=== PATIENT | male | born 2000 | race Two or more races ===

== ENCOUNTER 2024-11-16 16:24 | Emergency (ER) | payer MEDICAID, SELFPAY ==
[2024-11-16 16:24] VITALS: BMI 18.4
[2024-11-16 16:38] VITALS: BP 156/82; PULSE 63; RESP 16; TEMP 37.2; O2SAT 99
--- NOTE | 2024-11-16 16:42 | XR_ITS ---
Examination: Foot, right, 3 views Technique: AP, oblique, lateral views foot, 3 views Date and time of exam: November 16, 2024 1657 hrs. Indications: Patient fell today with injury to foot, foot pain. Findings: Normal bone density No acute fracture No dislocation Impression: No acute fracture
--- NOTE | 2024-11-16 16:43 | EDNOTE_ITS ---
Lower Extremity Injury RME/HPI General Chief Complaint: Extremity Injury, Lower Stated Complaint: Right ankle pain after a fall at school yesterday Time Seen by Provider: 11/16/24 16:31 Arrival date/time: 11/16/24 16:24 RME / HPI RME / HPI Narrative: 24-year-old male patient came in for evaluation regarding right foot pain. Patient was jumping at school yesterday resulting into swelling to the right foot, with bruising, patient is able to walk however limping. Denies any ankle pain denies any other injury. No medications taken prior to arrival. Related Data Previous Rx's ?Medication ?Instructions ?Recorded ibuprofen 800 mg tablet 800 mg PO TID PRN pain #30 t abs 11/16/24 Allergies Allergy/AdvReac Type Severity Reaction Status Date / Time No Known Allergies Allergy Verified 10/16/18 08:41 Review of Systems Review of Systems Narrative Review of Systems: Review of system reviewed and within normal limits except mentioned in HPI ED Exam Narrative Physical exam: VITAL SIGNS: Reviewed. GENERAL APPEARANCE: Alert and interactive, follows commands, no acute distress, HEAD AND FACE: Non-traumatic. ENT: PERRL, pink conjunctivitis, eyelid no trauma, Mucous membrane moist. NECK: Supple, nontender, no nuchal rigidity. CHEST: No tenderness, no crepitus, no paradoxical movement, no retractions. LUNGS: Clear, well ventilated, symmetric, no rales, no wheezing, no ronchi, no stridor, good breath sounds bilaterally. HEART: Regular rate, regular rhythm, no murmur, no gallops. ABDOMEN: Soft, positive bowel sounds, nondistended, no guarding, nontender, no rebound, no masses, RECTAL: Deferred. GENITAL: Deferred. NEUROLOGICAL: Gross motor function intact sensory function intact, Appropriate for age. MUSCULOSKELETAL: low back nontender, full range of motion. EXTREMITIES: Right foot midfoot swelling, bruising, with tenderness, full range of motion. SKIN: Color pink, dry, no rash, no lacerations, no abrasions, no contusions. LYMPHATICS: Deferred. Course Quality Measures none Orders Category Date Time Status XR foot comp RT min 3V Stat Exams 11/16/24 16:42 Taken Ibuprofen Tab [Motrin Tab] Med 11/16/24 16:42 Discontinued 800 mg PO X1 ONE Vital Signs Vital signs: Vital Signs Temperature 99 F 03/08/25 16:38 Pulse Rate 63 11/16/24 16:38 Respiratory Rate 16 11/16/24 16:38 Blood Pressure 156/82 H 11/16/24 16:38 Pulse Oximetry (%) 99 11/16/24 16:38 Oxygen Delivery Method Room Air 11/16/24 16:38 Extremity Injury, Lower MDM Narrative [facility] Narrative:: 24-year-old male patient came in for evaluation regarding right foot pain. Patient was jumping at school yesterday resulting into swelling to the right foot, with bruising, patient is able to walk however limping. Denies any ankle pain denies any other injury. No medications taken prior to arrival. X-ray of the right foot showed small avulsion fracture of the cuboid, rest of the bones unremarkable. Patient was placed in an Ortho shoe. Was advised to follow-up with PCP and for referral to orthopedic surgeon next week. Patient appears nontoxic and hemodynamically stable. Patient discharged home and instructed to follow-up with primary care provider in 24 to 48 hours. Instructed to return to the emergency department immediately if worsening of symptoms Patient data External records reviewed:: None Clinical information provided by:: patient Social determinants that could affect healthcare access:: none Patient has the following chronic illnesses:: None How is presenting disease/condition affected by chronic disease/condition?: no chronic disease Evaluation data The following diagnostics were reviewed and interpreted by me:: radiology exam(s) Lab and/or radiology exams considered but not ordered:: None Interpretation Summary: See results in MDM Medications / Prescriptions Medications or Prescriptions considered but not ordered:: None Medication administrations:: Medication Administration History Discontinued Medications Ibuprofen (Ibuprofen Tab 400 Mg Tablet) 800 mg PO X1 ONE Stop: 11/16/24 16:43 Last Admin: 11/16/24 16:56 Dose: 800 mg Documented By: Motrin Consultations Consultation(s) initiated? (list below): No Diagnosis Extremity Injury, Lower Differential Diagnosis: ankle sprain and strain and other (Foot fracture avulsion fracture of the cuboid) Most likely diagnosis given after review of the tests above:: fracture of the cuboid Admission Indicated Admission indicated?: not indicated Admission Request Was there a request for admission?: No Disposition Plan Disposition Plan: Discharge Discharge Attestation Discharge Attestation: The patient and all family members were given an opportunity to ask questions and understood the discharge instructions. Discharge instructions specifically effects, indications for sooner follow up or return to the emergency department, and the expected course of current diagnosis. Patient condition: Stable Discharge Plan Plan Patient Disposition: HOME (Self Care) Disposition Comment: Stable Prescriptions/Referrals Prescriptions/Med Rec: New ibuprofen 800 mg tablet 800 mg PO TID PRN (Reason: pain) Qty: 30 0RF Referrals: No Primary/Family,Physician [Primary Care Provider] - In 1 week Problem List Clinical Impression: Avulsion fracture of bone, Closed fracture cuboid Patient/Caregiver Discharge Instructions Discharge Activity: activity as tolerated Education Materials: How Bones Heal Additional Instructions: Thank you for the opportunity for serving you today. You are stable for discharged . You are advised to: Follow-up with your PCP in 1 to 2 days and asked for referral to orthopedic surgeon Wear your Ortho shoe for the next 4 weeks or until cleared by orthopedic lubin rgeon Return to ED for worsening of symptoms Increase oral fluids Take medication as prescribed Print Language: Turkish Stand Alone Forms: Lisandra Award Info., Patient Portal Info Letter NELSON/MAURICE Supervising Physician NELSON/MAURICE Supervising Physician: MD Erin
[2024-11-16] MEDS: IBUPROFEN TAB 400 MG TABLET 800 MG PO (16:56)
[2024-11-16 18:22] VITALS: BP 155/78; PULSE 61; RESP 19; TEMP 36.8; O2SAT 98
== END 2024-11-16 18:47 | disposition home or self-care (01) ==
PROVIDERS: Emergency Provider Emergency Medicine
DX: S92.211A Displaced fracture of cuboid bone of right foot, initial encounter for closed fracture (principal); W19.XXXA Unspecified fall, initial encounter; Y93.39 Activity, other involving climbing, rappelling and jumping off; Y92.219 Unspecified school as the place of occurrence of the external cause
CPT/HCPCS: 73630; 99283; A9270

== ENCOUNTER 2024-12-23 07:18 | Emergency (ER) | payer MEDICAID, SELFPAY ==
[2024-12-23 07:22] VITALS: PULSE 60; RESP 22; O2SAT 100; BMI 18.7
[2024-12-23 07:42] VITALS: BP 153/86; PULSE 92; RESP 16; TEMP 37.1; O2SAT 98
--- NOTE | 2024-12-23 07:49 | XR_ITS ---
Examination: CT brain head without contrast. 2-D sagittal coronal reconstructions Date and time of exam:December 23, 2024 0802 hours INDICATIONS: Ground-level fall today with into the head, head pain CTDI: vol (mGy):48.2 DLP: (mGycm):986 Technique: Multiple CT axial sections of the brain have been obtained, 5 mm slice thickness. Contrast has not been administered. 2-D sagittal, coronal reconstructions have been obtained Low dose protocols were performed. One or more of the following dose reduction techniques were used; automated exposure control, adjustment of the mA and/or KV according to patient size, use of iterative reconstruction technique. Findings: No significant ventricular enlargement. Intra-axial or extra-axial hemorrhage density is not seen. No mass effect or midline shift Basal cisterns are not remarkable. Fourth ventricle is midline. Cranial vault intact. Impression: Negative for acute hemorrhage, mass effect or midline shift
[2024-12-23 07:50] VITALS: PULSE 88
--- NOTE | 2024-12-23 07:50 | XR_ITS ---
Examination: AP chest single view Technique one AP portable upright chest single view Exam date and time: December 23, 2024 0819 hours Comparison June 16, 2019 INDICATIONS: Chest pain today. FINDINGS: Normal heart size No pneumonia or pulmonary edema The osseous structures are intact IMPRESSION: No pneumonia or pulmonary edema
--- NOTE | 2024-12-23 07:50 | EKG_ITS ---
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
--- NOTE | 2024-12-23 07:53 | PD.EDFALL ---
ED Fall Injury RME/HPI General Chief Complaint: Fall Stated Complaint: FALL Time Seen by Provider: 12/23/24 07:50 Arrival date/time: 12/23/24 07:18 RME / HPI RME / HPI Narrative: DR. JEWELL MAIN ED EVALUATION: 24 year old male presents to the Emergency Department [facility] accompanied by the mother with complaint of a fall after patient fainted. He is unsure why he fainted he just states it just happened all of sudden. He states he was getting out of bed this morning and fell. He has a headache and a laceration under the tongue on the right side. Per sister, patient was possibly shaking when it happened but no history of seizures. Related Data Previous Rx's ?Medication ?Instructions ?Recorded ibuprofen 800 mg tablet 800 mg PO TID PRN pain #30 tabs 11/16/24 Allergies Allergy/AdvReac Type Severity Reaction Status Date / Time No Known Allergies Allergy Verified 10/16/18 08:41 Review of Systems Review of Systems Systems Reviewed: All systems reviewed, normal except as documented Past Medical History Past Medical History GASTROINTESTINAL: Positive Gastroesophageal Reflux Disease PSYCHO/SOCIAL: Positive Anxiety Social History SMOKING STATUS: Never smoker SUBSTANCE USE: does not use ALCOHOL: Never ED Exam Narrative Physical exam: GENERAL APPEARANCE: alert and oriented x 4, well-developed, well-nourished, no acute distress VITALS: All vitals were reviewed and the pulse ox is 98% on room air, which is normal according to my interpretation. HEENT: There is an irregular laceration under the tongue on the right side measuring about 1 cm; pupils equal, round, reactive to light; EOMI; mucous membranes pink, moist; oropharynx clear NECK: Supple LUNGS: CTABL; no wheezes, no rales, no rhonchi HEART: Regular rate, regular rhythm; normal S1, S2; no murmurs ABDOMEN: non distended; normal BS; soft, no tenderness, no guarding, no rebound; no masses, no organomegaly, no hernia BACK: no CVA tenderness EXTREMITIES: atraumatic; no edema NEUROLOGIC: awake; alert and oriented x4; cranial nerves II-XII grossly intact; no focal sensory or motor deficits PSYCHIATRIC: appropriate mood and affect SKIN: warm, dry, normal color; no rashes Course Quality Measures none Orders Category Date Time Status Poultry Dresser NOW Care 12/23/24 07:50 Active EKG (ED ONLY) *Do not use* NOW Care 12/23/24 07:[address] head/brain wo con Stat Exams 12/23/24 07:49 Completed EKG (ED Only) Stat Exams 12/23/24 07:50 Draft XR chest 1V portable Stat Exams 12/23/24 07:50 Completed B-Type Natriuretic Peptide Stat Lab 12/23/24 08:39 Completed CBC Stat Lab 12/23/24 08:39 Completed Comprehensive Metabolic Panel Stat Lab 12/23/24 08:39 Completed Magnesium Stat Lab 12/23/24 08:39 Completed Troponin I Stat Lab 12/23/24 08:39 Completed Vital Signs Vital signs: Vital Signs Temperature 98.7 F 12/23/24 07:42 Pulse Rate 92 12/23/24 07:42 Respiratory Rate 16 12/23/24 07:42 Blood Pressure 153/86 H 12/23/24 07:42 Pulse Oximetry (%) 98 12/23/24 07:42 Oxygen Delivery Method Room Air 12/23/24 07:42 Fall MDM Narrative MDM Narrative:: Smiley Guzman am scribing for and in the presence of Dr. Jewell. Patient data External records reviewed:: EMS form Clinical information provided by:: patient, EMS and parent (mother) Social determinants that could affect healthcare access:: none Patient has the following chronic illnesses:: GERD How is presenting disease/condition affected by chronic disease/condition?: uneffected by Evaluation data The following diagnostics were reviewed and interpreted by me:: lab results, radiology exam(s) and EKG tracing(s) (EKG#1: EKG at 0755 hours. Interpreted by me: sinus rhythm, rate 85, delta wave in V2, J point elevation in V3 and AVF, J wave in V3-V5, T wave inversion in V1-V3) Lab and/or radiology exams considered but not ordered:: none Interpretation Summary: Procedure(s): CT head/brain wo con Accession Number(s): [id number] cc: Hans Honeycutt MD; Rajan Ornelas MD; Kay Jewell MD~ Examination: CT brain head without contrast. 2-D sagittal coronal reconstructions Date and time of exam:December 23, 2024 0802 hours INDICATIONS: Ground-level fall today with into the head, head pain CTDI: vol (mGy):48.2 DLP: (mGycm):986 Technique: Multiple CT axial sections of the brain have been obtained, 5 mm slice thickness. Contrast has not been administered. 2-D sagittal, coronal reconstructions have been obtained Low dose protocols were performed. One or more of the following dose reduction techniques were used; automated exposure control, adjustment of the mA and/or KV according to patient size, use of iterative reconstruction technique. Findings: No significant ventricular enlargement. Intra-axial or extra-axial hemorrhage density is not seen. No mass effect or midline shift Basal cisterns are not remarkable. Fourth ventricle is midline. Cranial vault intact. Impression: Negative for acute hemorrhage, mass effect or midline shift Dictated By: Rajan Ornelas MD Procedure(s): XR chest 1V portable Accession Number(s): [id number] cc: Hans Honeycutt MD; Rajan Ornelas MD; Kay Jewell MD~ Examination: AP chest single view Technique one AP portable upright chest single view Exam date and time: December 23, 2024 0819 hours Comparison June 16, 2019 INDICATIONS: Chest pain today. FINDINGS: Normal heart size No pneumonia or pulmonary edema The osseous structures are intact IMPRESSION: No pneumonia or pulmonary edema Dictated By: Rajan Ornelas MD Medications / Prescriptions Medications or Prescriptions considered but not ordered:: none Medication administrations:: see above if any Consultations Consultation(s) initiated? (list below): Yes Consultation #1 (Physician, Specialty, Details): Discussed test HPI, PMHx, lab, radiology results and/or management with railroad signal technician Dr. Hwang about the EKG. Dr. Hwang agrees that there is a delta wave and should follow as an outpatient. Time: 10:43 Diagnosis Fall Differential Diagnosis: syncope, concussion without loss of consciousness and other (laceration) Most likely diagnosis given after review of the tests above:: Abnormal ECG Syncope Simple laceration of tongue Admission Indicated Admission indicated?: not indicated Admission Request Was there a request for admission?: No Disposition Plan Disposition Plan: Discharge Discharge Attestation Discharge Attestation: The patient and all family members were given an opportunity to ask questions and understood the discharge instructions. Discharge instructions specifically effects, indications for sooner follow up or return to the emergency department, and the expected course of current diagnosis. Patient condition: Stable Discharge Plan Plan Patient Disposition: HOME (Self Care) Prescriptions/Referrals Prescriptions/Med Rec: No Action ibuprofen 800 mg tablet 800 mg PO TID PRN (Reason: pain) Qty: 30 0RF Referrals: Hans Honeycutt MD [Primary Care Provider] - In 1 week Problem List Clinical Impression: Abnormal ECG, Syncope, Simple laceration of tongue Patient/Caregiver Discharge Instructions Education Materials: ED Fainting, Uncertain Cause Additional Instructions: There are findings on your EKG that may be associated with ventricular pre-excitation . Follow up with your primary care doctor for referral to electrophysiology railroad signal technician for further workup. Print Language: Senegalese Stand Alone Forms: Lisandra Award Info., Patient Portal Info Letter
[2024-12-23 08:12] VITALS: BP 147/77; PULSE 88; RESP 16; TEMP 36.6; O2SAT 96
[2024-12-23 09:16] LABS: Basophils % (Auto) 1 % (0-2.5); Eosinophils # (Auto) 0.1 Thou/mm3 (0.0-0.5); Eosinophils % (Auto) 1 % (0-10); Hematocrit 47.8 % (41.0-53.0); Hemoglobin 16.1 g/dL (13.5-16.0); Immature Granulocytes % (Auto) 1 % (0-0); Immature Granulocytes Auto 0.04 Thou/mm3 (0.00-0.00); Lymphocytes # (Auto) 0.9 Thou/mm3 (1.0-4.8); Lymphocytes % (Auto) 11 % (10-50); Mean Corpuscular HGB Conc 33.7 g/dl (31.0-37.0); Mean Corpuscular Hemoglobin 29.1 pg (25.0-35.0); Mean Corpuscular Volume 86 fL (80-100); Monocytes # (Auto) 0.6 Thou/mm3 (0.0-0.8); Monocytes % (Auto) 8 % (0-12); Neutrophils # (Auto) 6.6 Thou/mm3 (1.8-7.7); Neutrophils % (Auto) 80 % (37-80); Nucleated Red Blood Cell % 0 /100 WBC (0); Platelet Count 189 Thou/mm3 (140-440); Red Blood Count 5.53 Miln/mm3 (4.50-5.90); White Blood Count 8.2 Thou/mm3 (3.8-10.6)
[2024-12-23 09:40] LABS: B-Type Natriuretic Peptide < 20 pg/mL (0-100)
[2024-12-23 09:52] LABS: Alanine Aminotransferase 9 U/L (10-49); Albumin, Serum 4.6 gm/dL (3.5-5.0); Alkaline Phosphatase 67 U/L (46-116); Anion Gap 6 (7-16); Aspartate Amino Transferase 22 U/L (0-34); BUN/Creatinine Ratio 10 Ratio (12-20); Bilirubin,Total 0.7 mg/dL (0.3-1.2); Blood Urea Nitrogen 10 mg/dL (9-23); Calcium 9.7 mg/dL (8.3-10.6); Calcium (Corrected) 9.7 mg/dL (8.5-10.1); Carbon Dioxide 30.6 mMol/L (20.0-31.0); Chloride 103 mMol/L (98-107); Estimated Creatinine Clearance 104.7 mL/min (>60); Globulin 2.3 gm/dL (2.3-3.5); Glucose 100 mg/dL (74-106); Magnesium 2.1 mg/dL (1.6-2.6); Osmolality,Calculated 278 (275-295); Potassium 4.2 mMol/L (3.4-5.1); Sodium 140 mMol/L (136-145); Total Protein 6.9 gm/dL (5.7-8.2); Troponin I < 0.020 ng/mL (0.0-0.045); eGFR > 60 See Note
[2024-12-23 10:00] VITALS: BP 131/70; PULSE 73; RESP 16; TEMP 36.5; O2SAT 99
[2024-12-23 11:04] VITALS: BP 133/70; PULSE 76; RESP 16; TEMP 36.7; O2SAT 97
== END 2024-12-23 11:00 | disposition home or self-care (01) ==
PROVIDERS: Emergency Provider Emergency Medicine; PCP Family Medicine
DX: S01.512A Laceration without foreign body of oral cavity, initial encounter (principal); R51.9 Headache, unspecified; W18.30XA Fall on same level, unspecified, initial encounter; R94.31 Abnormal electrocardiogram [ECG] [EKG]
CPT/HCPCS: 36415; 70450; 71045; 80053; 83735; 83880; 84484; 85025; 93005; 99284

== ENCOUNTER 2025-02-08 08:14 | Observation (INO) | payer MEDICAID, SELFPAY ==
[2025-02-08] VITALS (37 sets, daily range): BP systolic 121–143; BP diastolic 62–84; PULSE 49–99; RESP 12–100; TEMP 36.4–37.2; O2SAT 93–100; BMI 18.5
--- NOTE | 2025-02-08 | XR_ITS ---
Examination: MRI brain without intravenous contrast. Date and time of exam: February 08, 2025 at 1013 hrs. Syncopal episodes altered mental status this morning Technique: Multiple axial and sagittal images of the brain obtained. Siemens high-resolution 1.5 Sridevi short bore scanners utilized. Sagittal sections, T1-weighted, TR 500, TE 14, are performed. Axial sections proton-density and T2-weighted have been obtained. Inversion recovery axial images, TR 9, 260, TE 111, TI 2500. Diffusion weighted images, axial sections, TR 4800, TE 128, B value 1000 Axial sections, ADC map, TR 4800, TE 128 Findings: Enlargement of the sella turcica is not present. The optic chiasm and infundibular are not remarkable. Prepontine and interpeduncular cisterns are not enlarged. There is no localized enlargement of the medulla or eddie. Fourth ventricle and cerebellar tonsils appear normal in position. No subacute area of hemorrhage density is seen. Mass in the cerebellopontine angle region is not evident. Globes symmetrical. Orbital musculature including medial lateral rectus muscles do not exhibit abnormality. Diffusion-weighted images demonstrate no focus of restricted diffusion. Increased white matter signal not seen Mass effect upon the ventricular system is not identified. Impression: Negative for acute hemorrhage mass effect or midline shift No acute infarct No MR findings diagnostic for demyelinating disease
--- NOTE | 2025-02-08 08:26 | EKG_ITS ---
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
--- NOTE | 2025-02-08 08:44 | XR_ITS ---
Examination: AP chest single view Technique one AP portable upright chest single view Date and time: February 08, 2025 0900 hrs. Comparison December 23, 2024 Indications: Chest pain today Findings: Normal heart size. Lungs are clear The osseous structures are intact Impression: No active disease
--- NOTE | 2025-02-08 09:01 | PD.EDHEAD ---
ED Head Injury RME/HPI General Chief complaint: Head Injury Stated complaint: SYNCOPAL EPISODE Time Seen by Provider: 02/08/25 08:20 Arrival date/time: 02/08/25 08:14 RME / HPI RME / HPI Narrative: 24 year old male presents to the ED BIBA from home for evaluation of a head injury following syncopal episode earlier today. The patient?s mother reports that the fall was unwitnessed; she found him lying on the floor with his body stiff, eyes open, and snoring. The episode lasted a few minutes, and no shaking or convulsive activity was reported. Patient states that shortly after getting out of bed, he felt dizzy and has no memory of the events that followed. In the ED, he reports a headache and pain to the right forehead, which began after the fall. He denies chest pain or shortness of breath prior to the syncopal episode. Mother notes a prior similar syncopal event on 12/23/2024, for which he was evaluated here. At that time, he was found to have an abnormal ECG and was discharged with instructions to follow up with his PCP for cardiology referral. She reports he has not yet followed up. Patient denies recent illness, fevers, chills, sweats, chest pain, cough, shortness of breath, nausea, vomiting, diarrhea, constipation, urinary symptoms. No other associated symptoms or complaints reported. Related Data Previous Rx's ?Medication ?Instructions ?Recorded ibuprofen 800 mg tablet 800 mg PO TID PRN pain #30 tabs 11/16/24 Allergies Allergy/AdvReac Type Severity Reaction Status Date / Time No Known Allergies Allergy Verified 10/16/18 08:41 Review of Systems Review of Systems Narrative Review of Systems: GEN: No fever, no chills, no weight loss, +syncope EYES: No discharge, no visual changes, no pain HEENT: +injury to forehead. No ear pain, no congestion, no sore throat PULM: No shortness of breath, no cough, no congestion CV: No chest pain, no palpitations, +syncope GI: No nausea, no vomiting, no diarrhea, no pain, no constipation : No frequency, no urgency, no dysuria MUSC/SKEL: No joint pain, no back pain SKIN: No rash NEURO: No weakness, +headache Past Medical History Past Medical History CARDIAC: Negative Congestive Heart Failure RESPIRATORY: Negative Respiratory Disorders or Chronic Obstructive Pulmonary Disease (COPD) GASTROINTESTINAL: Positive Gastroesophageal Reflux Disease GENITOURINARY: Negative Renal Disease ENDOCRINE: Negative Diabetes Mellitus Type 1 or Diabetes Mellitus Type 2 PSYCHO/SOCIAL: Positive Anxiety Social History SMOKING STATUS: Never smoker SUBSTANCE USE: does not use ED Exam Narrative Physical exam: GENERAL APPEARANCE: alert and oriented x 4, well-developed, well-nourished, no acute distress HEENT: Normocephalic, atraumatic; pupils equal, round, reactive to light; EOMI; mucous membranes pink, moist; oropharynx clear NECK: Supple LUNGS: CTABL; no wheezes, no rales, no rhonchi HEART: Regular rate, regular rhythm; normal S1, S2; no murmurs ABDOMEN: non distended; normal BS; soft, no tenderness, no guarding, no rebound; no masses, no organomegaly, no hernia BACK: no CVA tenderness EXTREMITIES: atraumatic; no edema NEUROLOGIC: awake; alert and oriented x4; cranial nerves II-XII grossly intact; no focal sensory or motor deficits PSYCHIATRIC: appropriate mood and affect SKIN: warm, dry, normal color; no rashes Course Quality Measures none Orders Category Date Time Status Patient Condition Routine Admission 02/08/25 13:[address] in Observation Status Routine Admission 02/08/25 13:11 Active Cooker Process Cheese NOW Care 02/08/25 08:44 Active EKG (ED ONLY) *Do not use* NOW Care 02/08/25 08:26 Completed MRI Screening NOW Care 02/08/25 09:03 Active Miscellaneous Nursing Order NOW Care 02/08/25 13:16 Active Notify provider NEEDED Care 02/08/25 13:11 Active Nurse Swallow Screen X1 Care 02/08/25 13:16 Active Seizure precautions NEEDED Care 02/08/25 13:12 Active Sequential Compression Device QSHIFT Care 02/08/25 13:11 Active Consult to Cardiology Routine Cons 02/08/25 13:15 Ordered Consult to Neurology / Tele-Neurology Routine Cons 02/08/25 13:15 Active Diet Regular Diet 02/08/25 Dinner Active CA echo doppler complete Routine Exams 02/08/25 13:[address] head/brain wo con Stat Exams 02/08/25 09:53 Completed EKG (ED Only) Stat Exams 02/08/25 08:26 Draft MR head/brain wo con Stat Exams 02/08/25 Completed XR chest 1V portable Stat Exams 02/08/25 08:44 Completed A1C [Glycohemoglobin w (eAG)] AM DRAW Lab 02/09/25 05:00 Ordered B-Type Natriuretic Peptide Stat Lab 02/08/25 09:06 Completed CBC AM DRAW Lab 02/09/25 05:00 Ordered CBC AM DRAW Lab 02/10/25 05:00 Ordered CBC AM DRAW Lab 02/11/25 05:00 Ordered CBC Stat Lab 02/08/25 09:06 Completed Comprehensive Metabolic Panel AM DRAW Lab 02/09/25 05:00 Ordered Comprehensive Metabolic Panel AM DRAW Lab 02/10/25 05:00 Ordered Comprehensive Metabolic Panel AM DRAW Lab 02/11/25 05:00 Ordered Comprehensive Metabolic Panel Stat Lab 02/08/25 09:06 Completed Lipase Stat Lab 02/08/25 09:06 Completed Lipid Panel AM DRAW Lab 02/09/25 05:00 Ordered Magnesium AM DRAW Lab 02/09/25 05:00 Ordered Magnesium AM DRAW Lab 02/10/25 05:00 Ordered Magnesium AM DRAW Lab 02/11/25 05:00 Ordered Magnesium Stat Lab 02/08/25 09:06 Completed Partial Thromboplastin Time Stat Lab 02/08/25 09:06 Completed Prothrombin Time with INR Stat Lab 02/08/25 09:06 Completed Thyroid Stimulating Hormone AM DRAW Lab 02/09/25 05:00 Ordered Troponin I Q6H Lab 02/08/25 13:41 Completed Troponin I Q6H Lab 02/08/25 19:15 Ordered Troponin I Stat Lab 02/08/25 09:06 Completed Acetaminophen Tab [Tylenol Tab] Med 02/08/25 13:11 Active 650 mg PO Q6H PRN Acetaminophen Tab [Tylenol Tab] Med 02/08/25 10:06 Discontinued 650 mg PO X1 ONE HYDROcodone*/APAP 5/325 [Kennedy 5/325] Med 02/08/25 13:11 Active 1 tab PO Q4HR PRN Ondansetron Inj [Zofran Inj] Med 02/08/25 13:11 Active 4 mg IVP Q6H PRN Code Status Routine Oth 02/08/25 13:11 Ordered EEG Awake and Drowsy Routine RT 02/08/25 09:28 Taken EKG (RT) Q6H RT 02/08/25 13:15 Draft EKG (RT) Q6H RT 02/08/25 19:15 Draft Oxygen Delivery PRN RT 02/08/25 13:11 Active Vital Signs Vital signs: Vital Signs Pulse Rate 81 02/08/25 08:25 Respiratory Rate 21 H 02/08/25 08:25 Pulse Oximetry (%) 94 L 02/08/25 08:25 Pulse ox is 95% on room air which is adequate. Head Injury MDM Narrative MDM Narrative:: Asya Guzman am scribing for and in the presence of Dr. Jewell. Patient data External records reviewed:: [facility] previous records (I reviewed ED Visit on 12/23/2024) and EMS form Clinical information provided by:: patient, EMS and parent (Mother adds to hpi ) Social determinants that could affect healthcare access:: none Patient has the following chronic illnesses:: GERD How is presenting disease/condition affected by chronic disease/condition?: uneffected by Evaluation data The following diagnostics were reviewed and interpreted by me:: lab results, radiology exam(s) and EKG tracing(s) (EKG @ 08:47 AM. Sinus rhythm with short RI interval, rate 80, delta waves in leads II V2-V6. ) Lab and/or radiology exams considered but not ordered:: None Interpretation Summary: Ordering Physician: Kay Jewell MD Date of Service: 02/08/25 Procedure(s): XR chest 1V portable Accession Number(s): [id number] cc: Rajan Ornelas MD; Jefe Lira MD; Kay Jewell MD~ Examination: AP chest single view Technique one AP portable upright chest single view Date and time: February 08, 2025 0900 hrs. Comparison December 23, 2024 Indications: Chest pain today Findings: Normal heart size. Lungs are clear The osseous structures are intact Impression: No active disease Dictated By: Rajan Ornelas MD Signed By: <Electronically signed by Rajan Ornelas MD in OV> 02/08/25 1013 Ordering Physician: Kay Jewell MD Date of Service: 02/08/25 Procedure(s): CT head/brain wo con Accession Number(s): [id number] cc: Rajan Ornelas MD; Jefe Lira MD; Kay Jewell MD~ Examination: CT brain head without contrast. 2-D sagittal coronal reconstructions Date and time of exam:January 29, 2025, 10:20 AM Indications: Syncopal episode this morning CTDI: vol (mGy):50.5 DLP: (mGycm):1028 Technique: Multiple CT axial sections of the brain have been obtained, 5 mm slice thickness. Contrast has not been administered. 2-D sagittal, coronal reconstructions have been obtained Low dose protocols were performed. One or more of the following dose reduction techniques were used; automated exposure control, adjustment of the mA and/or KV according to patient size, use of iterative reconstruction technique. Findings: No significant ventricular enlargement. Intra-axial or extra-axial hemorrhage density is not seen. No mass effect or midline shift Basal cisterns are not remarkable. Fourth ventricle is midline. Cranial vault intact. Impression: Negative for acute hemorrhage, mass effect or midline shift Dictated By: Rajan Ornelas MD Signed By: <Electronically signed by Rajan Ornelas MD in OV> 02/08/25 1134 Ordering Physician: Kay Jewell MD Date of Service: 02/08/25 Procedure(s): MR head/brain wo con Accession Number(s): [id number] cc: Rajan Ornelas MD; Jefe Lira MD; Kay Jewell MD~ Examination: MRI brain without intravenous contrast. Date and time of exam: February 08, 2025 at 1013 hrs. Syncopal episodes altered mental status this morning Technique: Multiple axial and sagittal images of the brain obtained. Siemens high-resolution 1.5 Sridevi short bore scanners utilized. Sagittal sections, T1-weighted, TR 500, TE 14, are performed. Axial sections proton-density and T2-weighted have been obtained. Inversion recovery axial images, TR 9, 260, TE 111, TI 2500. Diffusion weighted images, axial sections, TR 4800, TE 128, B value 1000 Axial sections, ADC map, TR 4800, TE 128 Findings: Enlargement of the sella turcica is not present. The optic chiasm and infundibular are not remarkable. Prepontine and interpeduncular cisterns are not enlarged. There is no localized enlargement of the medulla or eddie. Fourth ventricle and cerebellar tonsils appear normal in position. No subacute area of hemorrhage density is seen. Mass in the cerebellopontine angle region is not evident. Globes symmetrical. Orbital musculature including medial lateral rectus muscles do not exhibit abnormality. Diffusion-weighted images demonstrate no focus of restricted diffusion. Increased white matter signal not seen Mass effect upon the ventricular system is not identified. Impression: Negative for acute hemorrhage mass effect or midline shift No acute infarct No MR findings diagnostic for demyelinating disease Dictated By: Rajan Ornelas MD Signed By: <Electronically signed by Rajan Ornelas MD in OV> 02/08/25 1137 Medications / Prescriptions Medications or Prescriptions considered but not ordered:: None Medication administrations:: Medication Administration History Acetaminophen (Acetaminophen 325 Mg Tablet) 650 mg PO Q6H PRN; Protocol PRN Reason: pain and Fever >100.4 Stop: 03/10/25 13:10 Hydrocodone Bitart/Acetaminophen (Hydrocodone/Apap 5/325 Tablet) 1 tab PO Q4HR PRN PRN Reason: PAIN SCALE 4-10(Mod-Sev Stop: 02/13/25 13:10 Ondansetron HCl (Ondansetron Inj 2 Mg/Ml Inj 2 Ml) 4 mg IVP Q6H PRN; Protocol PRN Reason: NAUSEA OR VOMITING Stop: 03/10/25 13:10 Discontinued Medications Acetaminophen (Acetaminophen 325 Mg Tablet) 650 mg PO X1 ONE Stop: 02/08/25 10:07 Last Admin: 02/08/25 10:11 Dose: 650 mg Documented By: CG See above Consultations Consultation(s) initiated? (list below): Yes Consultation #1 (Physician, Specialty, Details): I spoke with neurologist Dr. Copeland. Discussed patients PMHx, HPI, ED course, exam findings. Recommends admission, EEG, and MRI brain. Time: 09:25 Consultation #2 (Physician, Specialty, Details): I spoke with hospitalist Dr. Bright. Discussed patients PMHx, HPI, ED course, exam findings, labs, and radiology results. The hospitalist agree to accept the patient for admission. Time: 12:00 Diagnosis Differential diagnosis head injury: concussion without loss of consciousness, closed head injury, subarachnoid hematoma, postconcussion syndrome, subdural hematoma, concussion with loss of consciousness and other (seizure ) Most likely diagnosis given after review of the tests above:: Syncope Admission Indicated Admission indicated?: indicated Admission Request Was there a request for admission?: Yes Admission Attestation Admission request attestation: Discussed case with [] from Hospitalist service regarding admission. Discussed patients ED course, exam findings, labs, and radiology results. The Hospitalist [agrees,declines] to accept the patient for admission. Disposition Plan Disposition Plan: Admit Discharge Plan Plan Patient Disposition: Admit Acute Care w/in Hospital Problem List Clinical Impression: Syncope
[2025-02-08 09:31] LABS: Basophils % (Auto) 1 % (0-2.5); Eosinophils # (Auto) 0.1 Thou/mm3 (0.0-0.5); Eosinophils % (Auto) 2 % (0-10); Hematocrit 44.3 % (41.0-53.0); Hemoglobin 15.6 g/dL (13.5-16.0); Immature Granulocytes % (Auto) 1 % (0-0); Immature Granulocytes Auto 0.04 Thou/mm3 (0.00-0.00); Lymphocytes % (Auto) 13 % (10-50); Mean Corpuscular HGB Conc 35.2 g/dl (31.0-37.0); Mean Corpuscular Hemoglobin 29.2 pg (25.0-35.0); Mean Corpuscular Volume 83 fL (80-100); Monocytes # (Auto) 0.5 Thou/mm3 (0.0-0.8); Monocytes % (Auto) 7 % (0-12); Neutrophils # (Auto) 5.7 Thou/mm3 (1.8-7.7); Neutrophils % (Auto) 78 % (37-80); Nucleated Red Blood Cell % 0 /100 WBC (0); Platelet Count 184 Thou/mm3 (140-440); RDW Standard Deviation 39.8 fL (35.1-43.9); Red Blood Count 5.35 Miln/mm3 (4.50-5.90); White Blood Count 7.4 Thou/mm3 (3.8-10.6)
[2025-02-08 09:37] LABS: B-Type Natriuretic Peptide < 20 pg/mL (0-100)
[2025-02-08 09:38] LABS: INR 1.1 (0.9-1.3); Partial Thromboplastin Time 23.7 Seconds (22.0-36.0); Prothrombin Time 11.6 Seconds (9.0-12.2)
[2025-02-08 09:50] LABS: Alanine Aminotransferase 8 U/L (10-49); Albumin, Serum 4.6 gm/dL (3.5-5.0); Albumin/Globulin Ratio 2.4 (1.2-2.2); Alkaline Phosphatase 57 U/L (46-116); Anion Gap 11 (7-16); Aspartate Amino Transferase 20 U/L (0-34); BUN/Creatinine Ratio 9 Ratio (12-20); Bilirubin,Total 0.7 mg/dL (0.3-1.2); Blood Urea Nitrogen 9 mg/dL (9-23); Calcium 9.3 mg/dL (8.3-10.6); Calcium (Corrected) 9.3 mg/dL (8.5-10.1); Carbon Dioxide 29.1 mMol/L (20.0-31.0); Chloride 105 mMol/L (98-107); Estimated Creatinine Clearance 106.2 mL/min (>60); Globulin 1.9 gm/dL (2.3-3.5); Glucose 85 mg/dL (74-106); Lipase 34 U/L (12-53); Magnesium 2.1 mg/dL (1.6-2.6); Osmolality,Calculated 286 (275-295); Potassium 4.3 mMol/L (3.4-5.1); Sodium 145 mMol/L (136-145); Total Protein 6.5 gm/dL (5.7-8.2); Troponin I < 0.002 ng/mL (0.0-0.045); eGFR > 60 See Note
--- NOTE | 2025-02-08 09:53 | XR_ITS ---
Examination: CT brain head without contrast. 2-D sagittal coronal reconstructions Date and time of exam:January 29, 2025, 10:20 AM Indications: Syncopal episode this morning CTDI: vol (mGy):50.5 DLP: (mGycm):1028 Technique: Multiple CT axial sections of the brain have been obtained, 5 mm slice thickness. Contrast has not been administered. 2-D sagittal, coronal reconstructions have been obtained Low dose protocols were performed. One or more of the following dose reduction techniques were used; automated exposure control, adjustment of the mA and/or KV according to patient size, use of iterative reconstruction technique. Findings: No significant ventricular enlargement. Intra-axial or extra-axial hemorrhage density is not seen. No mass effect or midline shift Basal cisterns are not remarkable. Fourth ventricle is midline. Cranial vault intact. Impression: Negative for acute hemorrhage, mass effect or midline shift
[2025-02-08] MEDS: ACETAMINOPHEN 325 MG TABLET 650 MG PO (10:11)
--- NOTE | 2025-02-08 11:54 | RESP.EEG ---
EEG ordered by ED physician, Pt in ED 5 unable to be done at this time due to patient privacy
--- NOTE | 2025-02-08 13:14 | ECHO_ITS ---
Transthoracic Echo Report Ht (in): 74 Wt (lb): 144 Exam Location: Echo Lab Status: Emergency [employer] Technician: Stefanie Andino Indications: Procedure Performed: BP: 134 / 64 HR: 62 Technical Quality: Technically difficult study MEASUREMENTS (Male / Female) Normal Values 2D ECHO LV Diastolic Diameter PLAX 4.3 cm 4.2 - 5.9 / 3.9 - 5.3 cm LV Systolic Diameter PLAX 3.1 cm IVS Diastolic Thickness 0.8 cm 0.6 - 1.0 / 0.6 - 0.9 cm LVPW Diastolic Thickness 0.9 cm 0.6 - 1.0 / 0.6 - 0.9 cm LV Relative Wall Thickness 0.4 LVOT Diameter 1.7 cm LV Ejection Fraction MOD BP 61.0 % >= 55 % LV Cardiac Index MOD BP 2377.9 cm?/min?m? LV Ejection Fraction MOD 4C 48.5 % LV Cardiac Index MOD 4C 1497.2 cm?/min?m? LV Ejection Fraction 4C AL 48.6 % LV Cardiac Index 4C AL 1544.9 cm?/min?m? LV Ejection Fraction MOD 2C 68.1 % LV Cardiac Index MOD 2C 3068.9 cm?/min?m? LV Ejection Fraction 2C AL 67.9 % LV Cardiac Index 2C AL 3108.6 cm?/min?m? LA Volume Index 20.1 cm?/m? 16 - 28 cm?/m? M-MODE Aortic Root Diameter MM 2.8 cm LA Systolic Diameter MM 2.7 cm LA Ao Ratio MM 1.0 AV Cusp Separation MM 1.8 cm DOPPLER AV Peak Velocity 122.0 cm/s AV Peak Gradient 6.0 mmHg AV Mean Gradient 3.0 mmHg AV Velocity Time Integral 24.3 cm LVOT Peak Velocity 113.0 cm/s LVOT Peak Gradient 5.1 mmHg LVOT Velocity Time Integral 22.8 cm LVOT Cardiac Index 1753.0 cm?/min?m? AV Area Cont Eq vti 2.1 cm? AV Area Cont Eq pk 2.1 cm? MV Area PHT 5.6 cm? Mitral E Point Velocity 79.1 cm/s Mitral A Point Velocity 48.0 cm/s Mitral E to A Ratio 1.6 LV E' Lateral Velocity 13.7 cm/s Mitral E to LV E' Lateral Ratio 5.8 LV E' Septal Velocity 12.9 cm/s Mitral E to LV E' Septal Ratio 6.1 FINDINGS Left Ventricle Normal left ventricular size, wall thickness, systolic function with no obvious regional wall motion abnormalities. Normal left ventricular diastolic filling pattern for age. The ejection fraction is visually estimated at 60-65 %. Right Ventricle The right ventricle is normal in size and systolic function. Left Atrium The left atrium is normal by two-dimensional, color flow and Doppler imaging with no structural abnormalities, no thrombus formation present. Right Atrium The right atrium is normal by two-dimensional imaging, color flow and Doppler imaging with no structural abnormalities, no thrombus formation present. Atrial Septum The interatrial septum appears normal with no evidence of a shunt. Aorta The aorta is normal by two-dimensional, color flow and Doppler interrogation. Mitral Valve The mitral valve is normal by two-dimensional, color flow and Doppler interrogation. There is no significant mitral valve regurgitation, stenosis or prolapse. Aortic Valve The aortic valve is trileaflet and normal by two-dimensional, color flow and Doppler interrogation. There is no significant aortic valve regurgitation. Tricuspid Valve The tricuspid valve is normal by two-dimensional, color flow and Doppler interrogation. There is trace tricuspid valve regurgitation. Pulmonic Valve The pulmonic valve is not well visualized. There is no significant pulmonic valve regurgitation. Vessels The pulmonary artery appears normal. The inferior vena cava pulmonary and hepatic veins appear normal. Pericardium The pericardium is normal by two-dimensional imaging. There is no significant pericardial effusion. CONCLUSIONS Indication: Syncope Normal LV size and function. Normal diastolic function. Estimated EF 60-65 %. RV is normal in size and systolic function. Trace TR and trace MR. Job Ernstdorothyemerson (Electronically Signed) Final Date: 09 February 2025 12:56
--- NOTE | 2025-02-08 13:15 | EKG_ITS ---
[facility] Test Date: 2025-02-08 Pat Name: DEXTER BHATIA Department: Room: - Gender: Male Neurourologist: : 2000 Requested By: Brad Samaniego Order Number: [id number] Reading MD: Brad Samaniego Measurements Intervals [place] Rate: 57 P: 32 MD: 80 QRS: 54 QRSD: 130 T: 57 QT: 424 QTc: 416 Interpretive Statements SINUS BRADYCARDIA WITH SHORT MD INTERVAL VENTRICULAR PREEXCITATION / WPW CRITICAL TEST RESULT Compared to ECG 02/08/2025 08:48:28 Sinus rhythm no longer present /store/S0/[id number].pdf
--- NOTE | 2025-02-08 13:16 | ESHP_ITS ---
<Statement entered by Luiz Bright MD - 02/12/25 15:45> I reviewed above note and agree with findings and plans. I have also personally examined the patient with medicine team and went over assessment and plan with medical team including director international and resident physician. Documentation for date of: 02/08/25 HPI History of Present Illness Chief complaint: Syncope History of present illness: 24-year-old male with no other past medical history was admitted to the hospital 02/08/2025 after coming to the ED with complaints of syncopal episode. This is the second episode the patient has had of a syncopal episode within the past 2 months with the latest one being on 12/23/2024. Patient stated that at this time he felt similar things as the previous episode where he started feeling his heart to race like palpitations and when he is developing a severe headache prior to everything going black and losing conscious. Patient's mother who was at bedside stated that this is the second episode and that he was found on the floor today without any urine or bowel incontinence and that he was very stiff and with his eyes wide open. Now she also mentioned that in the previous episode his father did mention that he was taking he has some bleeding from the mouth likely from tongue biting. Patient himself stated that he does not remember anything other the fainting that he has not used any drugs, does not smoke, or drink alcohol. Patient's mother stated that no one in the family has had sudden cardiac arrest or any seizures. Patient did mention that he play soccer and that he does not feel like he is can to faint or has passed out while playing. ED course: Initially came in mildly hypertensive and afebrile. Initial labs were unremarkable. Initial imaging included brain MRI, head CT, and chest x-ray were all negative. Patient had 2 EKGs done which showed delta waves on lead II and V2 to V6. Of note patient recently was in the ED on 12/23/24 for similar symptoms and he was discharged with instructions to follow-up outpatient with cardiology. PMH: GERD Medications: Lansoprazole Allergies: NKDA Social Hx: Denies any smoking, alcohol, drugs Review of Systems Review of Systems Narrative Review of Systems: Constitutional: Denies sweats, Denies weight loss/gain, Denies fever, Denies chills. HEENT: Denies hearing loss, Denies ear pain, Denies postnasal drip, Denies double vision, Denies blurry vision. Respiratory: Denies shortness of breath, Denies cough, Denies wheezing. Cardiovascular: Denies chest pain, Admits palpitations, Admits sudden loss of consciousness. GI: Denies blood in stool, Denies constipation, Denies abdominal pain, Denies difficulty swallowing, Denies nausea or vomit. : Denies urinary incontinence, Denies pain while urinating, Denies increased urinary frequency. MSK: Denies joint pain, Denies joint swelling, Denies numbness. Skin: Denies rash, Denies itching, Denies easy bruising. Neuro: Admits headaches, Denies dizziness, Denies seizures. Past Medical History Past Medical History CARDIAC: Negative Congestive Heart Failure RESPIRATORY: Negative Respiratory Disorders or Chronic Obstructive Pulmonary Disease (COPD) GASTROINTESTINAL: Positive Gastroesophageal Reflux Disease GENITOURINARY: Negative Renal Disease ENDOCRINE: Negative Diabetes Mellitus Type 1 or Diabetes Mellitus Type 2 PSYCHO/SOCIAL: Positive Anxiety Social History SMOKING STATUS: Never smoker SUBSTANCE USE: does not use Exam Vital Signs Temp Pulse Resp BP Pulse Ox O2 Del Method 98.0 F 61 18 138/77 H 100 Room Air 02/08/25 10:13 02/08/25 11:35 02/08/25 11:35 02/08/25 11:35 02/08/25 11:35 02/08/25 10:13 Narrative Exam General: A/O x3, no acute distress Eyes: PERRL, EOMI. Anicteric, vision grossly intact. Ears: No ear pain, no ear discharge, Hearing grossly intact. Nose: No nasal discharge. Mouth/Throat: Dry mucous membranes, no redness, no lesions. Neck: Neck supple, non-tender, no cervical lymphadenopathy. Lungs: Clear IRENE to auscultation and percussion, No accessory muscle use. Cardio: Normal S1 and loud S2 at L lower sternal border, regular rhythm, no murmurs, no JVD, Some mild pectus excavatum Abdomen: Soft, non-tender, no palpable masses, peristalsis present, no guarding or rebound. Extremities: Symmetrical, no significant deformities, no peripheral edema , non-tender, peripheral pulses presents. Skin: No rashes, no lesions, warm to touch. Neuro: No focal neurological deficits. motor and sensory intact Psych: Flat effect Results: Labs 02/08/25 09:06 02/08/25 09:06 Labs: Short CBC 02/08/25 Range/Units 09:06 WBC 7.4 (3.8-10.6) Thou/mm3 Hgb 15.6 (13.5-16.0) g/dL Hct 44.3 (41.0-53.0) % Plt Count 184 (140-440) Thou/mm3 BMP 02/08/25 09:06 Sodium 145 Potassium 4.3 Chloride 105 Carbon Dioxide 29.1 BUN 9 Creatinine 1.0 Glucose 85 Calcium 9.3 Cardiac Enzymes 02/08/25 Range/Units 09:06 Troponin I < 0.002 (0.0-0.045) ng/mL Liver Function 02/08/25 Range/Units 09:06 Total Bilirubin 0.7 (0.3-1.2) mg/dL AST 20 (0-34) U/L ALT 8 L (10-49) U/L Alkaline Phosphatase 57 (46-116) U/L Albumin 4.6 (3.5-5.0) gm/dL Quality Measures Quality Measures none Medications Home Medications and Allergies Allergies Allergy/AdvReac Type Severity Reaction Status Date / Time No Known Allergies Allergy Verified 10/16/18 08:41 Visit Medications Acetaminophen (Acetaminophen 325 Mg Tablet) 650 mg PO Q6H PRN PRN Reason: pain and Fever >100.4 Stop: 03/10/25 13:10 Hydrocodone Bitart/Acetaminophen (Hydrocodone/Apap 5/325 Tablet) 1 tab PO Q4HR PRN PRN Reason: PAIN SCALE 4-10(Mod-Sev Stop: 02/13/25 13:10 Ondansetron HCl (Ondansetron Inj 2 Mg/Ml Inj 2 Ml) 4 mg IVP Q6H PRN; Protocol PRN Reason: NAUSEA OR VOMITING Stop: 03/10/25 13:10 Discontinued Medications Acetaminophen (Acetaminophen 325 Mg Tablet) 650 mg PO X1 ONE Stop: 02/08/25 10:07 Last Admin: 02/08/25 10:11 Dose: 650 mg Assessment & Plan Plan 24-year-old male with no other past medical history was admitted to the hospital 02/08/2025 due to syncope. #Syncope Patient came in with complaints of a syncopal episode in which she lost conscious and was found by his parents. This is the second episode that the patient has had in the past 2 months. Patient's EKG that shows some delta waves on the previous time that he was in the ER around this time he also had delta waves which were not seen in previous EKG done in 2019. Syncopal episode could be due to possible reentrant arrhythmia like WPW versus possible seizures given that patient's family stated that on the previous episode he did have some shaking and tongue biting. Patient had brain MRI, head CT, and chest x-ray which were all negative Bedside echo was noncontributory as patient had very poor windows due to anatomy and we could not get clear windows to assess heart function or heart size. Plan: Will order A1c, lipid panel, and TSH for morning labs for cardiac stratification Will order troponins every 6 x 2 Will order EKG every 6 hours x 2 Will order echo to rule out hypertrophic cardiomyopathy versus any other wall abnormalities Will order EEG to rule out seizures Seizures precautions Consulted cardiology, appreciate recommendations Consulted neurology, appreciate recommendations Disposition: Pending [facility] neuro rec Diet: Regular GI prophylaxis: not indicated DVT prophylaxis: SCDs Code: Full Case disclosed with Attending Dr. Kaila Samaniego PGY1 Disclaimer: Even though this this note was dictated by speech recognition and even though it was carefully revised there may still be minor errors in data network architect due to voice recognition software.
[2025-02-08 14:14] LABS: Troponin I < 0.020 ng/mL (0.0-0.045)
--- NOTE | 2025-02-08 15:37 | RESP.EEG ---
EEG COMPLETED AT THIS TIME AND READY TO BE READ. DR Campos NOTIFIED
--- NOTE | 2025-02-08 15:48 | ESCONSULT_ITS ---
HPI Data of Consult Requesting Physician: Luiz Bright MD Admitting Provider: Luiz Bright MD Attending Provider: Luiz Bright MD Primary Care Provider: Jeef Lira MD Consult Narrative Reason for consult: syncopy History of present illness: Patient is 24 years old male with no significant past medical history presented to the ED after syncopal episode today morning. He reports he woke up in the morning feeling completely normal and when he extended up from the bed felt dizzy and neck send he remembered he was on the floor. He denies any chest pain, pressure, shortness of breath prior to the event or after. He reports he had similar episode approximately 1 months ago when he were standing up from the bed and also syncopized but did not go to the hospital after it. He denies any family history of cardiac problems. He never had any chest pain or pressure on exertion. He has some anxiety and frequently feels palpitations when he is stressed. 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 On arrival to the ED his blood pressure 132/67, pulse 81, respirations 21, temperature 98.1 ?F, oxygen saturation 94% on room air. Labs were unremarkable. Head CT and brain MRI were unremarkable. Chest x-ray was unremarkable. EKG showed short OH interval with suspicion for delta waves in leads II, V2-V6. Patient was admitted for further management and observation, cardiology was consulted. Patient was seen and examined at bedside. He reports no symptoms at this moment, denies any dizziness, chest pain or pressure, palpitations, shortness of breath. Will do full cardiac workup including cardiac echo and will continue to monitor patient. cc:: cc: Luiz Bright MD Review of Systems Review of Systems Systems Reviewed: All systems reviewed, normal except as documented Exam Vital Signs Temp Pulse Resp BP Pulse Ox O2 Del Method 98.9 F 55 L 18 121/72 98 Room Air 02/08/25 14:34 02/08/25 15:38 02/08/25 15:38 02/08/25 14:34 02/08/25 14:34 02/08/25 14:34 Narrative Exam Gen: Well-developed and well-nourished tall male. HEENT: NCAT, PERRLA, EOMI, MMM, anicteric conjunctivae. CVS: normal S1 and S2. RRR. No M/R/G. Resp: CTA B/L. No rhonchi, rales, crackles or wheezing. Abd: soft, non-tender, non-distended. BS+ in all 4 quadrants. MSK: Good ROM in BUE & BLE. No edema or rash. Neuro: CN II-XII grossly intact. Strength 5/5 in BUE & BLE. Alert and oriented x3. Psych: appropriate mood and affect. Results Labs 02/08/25 09:06 02/08/25 09:06 Labs: Short CBC 02/08/25 Range/Units 09:06 WBC 7.4 (3.8-10.6) Thou/mm3 Hgb 15.6 (13.5-16.0) g/dL Hct 44.3 (41.0-53.0) % Plt Count 184 (140-440) Thou/mm3 BMP 02/08/25 09:06 Sodium 145 Potassium 4.3 Chloride 105 Carbon Dioxide 29.1 BUN 9 Creatinine 1.0 Glucose 85 Calcium 9.3 Cardiac Enzymes 02/08/25 02/08/25 Range/Units 09:06 13:41 Troponin I < 0.002 < 0.020 (0.0-0.045) ng/mL Liver Function 02/08/25 Range/Units 09:06 Total Bilirubin 0.7 (0.3-1.2) mg/dL AST 20 (0-34) U/L ALT 8 L (10-49) U/L Alkaline Phosphatase 57 (46-116) U/L Albumin 4.6 (3.5-5.0) gm/dL Quality Measures Quality Measures none Medications Home Medications and Allergies Allergies Allergy/AdvReac Type Severity Reaction Status Date / Time No Known Allergies Allergy Verified 10/16/18 08:41 Visit Medications Acetaminophen (Acetaminophen 325 Mg Tablet) 650 mg PO Q6H PRN; Protocol PRN Reason: pain and Fever >100.4 Stop: 03/10/25 13:10 Hydrocodone Bitart/Acetaminophen (Hydrocodone/Apap 5/325 Tablet) 1 tab PO Q4HR PRN PRN Reason: PAIN SCALE 4-10(Mod-Sev Stop: 02/13/25 13:10 Ondansetron HCl (Ondansetron Inj 2 Mg/Ml Inj 2 Ml) 4 mg IVP Q6H PRN; Protocol PRN Reason: NAUSEA OR VOMITING Stop: 03/10/25 13:10 Discontinued Medications Acetaminophen (Acetaminophen 325 Mg Tablet) 650 mg PO X1 ONE Stop: 02/08/25 10:07 Last Admin: 02/08/25 10:11 Dose: 650 mg Assessment & Plan Plan Patient is 24 years old male with no significant past medical history presented to the ED after syncopal episode today morning, EKG showed short OH interval with suspicion for delta waves in leads II, V2-V6. Patient was admitted for further management and observation, cardiology was consulted. #Syncope. #Suspicion for WPW syndrome. - 2 episodes of syncopy in the morning within the last month, history of palpitations, previously was suspected to have WPW syndrome. - EKG showed short OH interval with suspicion for delta waves in leads II, V2- V6. Plan: - telemetry monitoring. - monitor electrolytes including magnesium and potassium. - echo is ordered. - check TSH, free T4. - drug screen. Management of other problems as per primary team. Plan of care discussed with attending Dr. Ambrose. Sal Wayne MD, PGY 2. Disclaimer: This note was dictated by speech recognition. Minor errors in computer programming supervisor may be present due to voice recognition software.
--- NOTE | 2025-02-08 19:15 | EKG_ITS ---
[facility] Test Date: 2025-02-08 Pat Name: DEXTER BHATIA Department: Room: - Gender: Male [employer]: : 2000 Requested By: Brad Samaniego Order Number: [id number] Reading MD: Brad Samaniego Measurements Intervals [place] Rate: 83 P: 72 [place]: 105 QRS: 67 QRSD: 130 T: 64 QT: 367 QTc: 432 Interpretive Statements SINUS RHYTHM WITH SHORT WY INTERVAL VENTRICULAR PREEXCITATION / WPW CRITICAL TEST RESULT Compared to ECG 02/08/2025 08:47:30 No significant changes /store/S0/[id number].pdf
[2025-02-08 19:37] LABS: Troponin I < 0.020 ng/mL (0.0-0.045)
--- NOTE | 2025-02-08 20:25 | PD.NEUROCONS ---
History of Present Illness Data of Consult Requesting Physician: Luiz Bright MD Primary Care Provider: Jefe Lira MD Consult Narrative History of present illness: Patient is a 24-year old male with no other past medical history was admitted to the hospital 02/08/2025 after coming to the ER with complaints of syncopal episode. This is the second episode the patient has had of a syncopal episode within the past 2 months with the latest one being on 12/23/2024. Patient stated that at this time he felt similar things as the previous episode where he started feeling his heart to race like palpitations and when he is developing a severe headache prior to everything going black and losing conscious. Patient's mother who was at bedside stated that this is the second episode and that he was found on the floor today without any urine or bowel incontinence and that he was very stiff and with his eyes wide open. Now she also mentioned that in the previous episode his father did mention that he was taking he has some bleeding from the mouth likely from tongue biting. Patient himself stated that he does not remember anything other the fainting that he has not used any drugs, does not smoke, or drink alcohol. Patient's mother stated that no one in the family has had sudden cardiac arrest or any seizures. Patient did mention that he play soccer and that he does not feel like he is going to faint or has passed out while playing. Workup in the ER Initially came in mildly hypertensive and afebrile. Initial labs were unremarkable. Initial imaging included brain MRI, head CT, and chest x-ray were all negative. Patient had 2 EKGs done which showed delta waves on lead II and V2 to V6. patient recently was in the ER on 12/23/24 for similar symptoms and he was discharged with instructions to follow-up outpatient with cardiology. Neurology is consulted to evaluate further and I recommended admission for workup. cc:: cc: Luiz Bright MD Review of Systems Review of Systems Narrative Review of Systems: GEN: No fever, no chills, no weight loss, +syncope EYES: No discharge, no visual changes, no pain HEENT: +injury to forehead. No ear pain, no congestion, no sore throat PULM: No shortness of breath, no cough, no congestion CV: No chest pain, no palpitations, +syncope GI: No nausea, no vomiting, no diarrhea, no pain, no constipation : No frequency, no urgency, no dysuria MUSC/SKEL: No joint pain, no back pain SKIN: No rash NEURO: No weakness, +headache Meds Home Medications and Allergies Allergies Allergy/AdvReac Type Severity Reaction Status Date / Time No Known Allergies Allergy Verified 10/16/18 08:41 Exam - Neurology Vital Signs Temp Pulse Resp BP Pulse Ox O2 Del Method 97.9 F 61 16 143/84 H 98 Room Air 02/08/25 20:00 02/08/25 20:02/08/25 20:02/08/25 20:00 02/08/25 20:00 02/08/25 20:00 Narrative Exam GENERAL APPEARANCE: Well hydrated, well-nourished in no acute distress. HEENT: Normocephalic, atraumatic, extraocular movements intact. Pupils: Equal reacting to light and accommodation NECK: Supple, no JVD or bruits. CARDIOVASULAR: Heart: S1, S2 heard, regular without S3-S4 or murmur no rubs or gallops. LUNGS/CHEST: Clear to auscultation bilaterally. No rails, rhonchi, or wheezing. Normal inspection. ABDOMEN: Soft, nontender, with normal bowel sounds. No pulsatile masses. No rebound, rigidity, or guarding. Normal inspection and palpation. EXTREMITIES: Normal inspection and palpation. No edema, clubbing or cyanosis. SKIN: Warm and dry without rashes. Normal inspection. MUSCULOSKELETAL: No cervical, thoracic, lumbar or midline bony tenderness. Normal inspection. NEURO: Alert, awake and oriented x3. Cranial nerves: II through XII grossly intact. Speech and language: Normal with no dysarthria or dysphasia. Motor system: Tone and bulk: Normal: Strength: 5 out of 5 in all 4 extremities; No pronator drift noted. Deep tendon reflexes: 2+ bilaterally symmetrical. Plantar reflex: Downgoing bilaterally. Sensory system: Intact to all modalities of sensation bilaterally. Coordination: Intact to wohjir-ypcw-erfad and oplv-kbdp-jcff test bilaterally. No ataxia, no dysmetria, or dysdiadochokinesia noted. No intention tremors noted. Gait: Not tested. No signs of meningeal irritation noted. PSYCHIATRIC: Normal mood and affect. Results Labs 02/09/25 05:42 02/09/25 05:42 Labs: Short CBC 02/08/25 Range/Units 09:06 WBC 7.4 (3.8-10.6) Thou/mm3 Hgb 15.6 (13.5-16.0) g/dL Hct 44.3 (41.0-53.0) % Plt Count 184 (140-440) Thou/mm3 BMP 02/08/25 09:06 Sodium 145 Potassium 4.3 Chloride 105 Carbon Dioxide 29.1 BUN 9 Creatinine 1.0 Glucose 85 Calcium 9.3 Cardiac Enzymes 02/08/25 02/08/25 02/08/25 Range/Units 09:06 13:41 18:58 Troponin I < 0.002 < 0.020 < 0.020 (0.0-0.045) ng/mL Liver Function 02/08/25 Range/Units 09:06 Total Bilirubin 0.7 (0.3-1.2) mg/dL AST 20 (0-34) U/L ALT 8 L (10-49) U/L Alkaline Phosphatase 57 (46-116) U/L Albumin 4.6 (3.5-5.0) gm/dL Assessment & Plan Assessment and plan (1) Syncope: Status: Chronic Assessment and plan: Noted that cardiology was consulted (2) Seizure disorder: Status: Acute Assessment and plan: As the EEG was abnormal with multifocal epileptiform discharges, will start him on Keppra 500 mg twice a day. Reassurance given to the patient that the MRI brain showed normal study. Could not find the etiology for the seizures.
[2025-02-08] MEDS: levETIRAcetam 250 MG TABLET 500 MG PO (20:33)
--- NOTE | 2025-02-08 21:37 | PC.NURSE ---
Per charge nurse Ankit burk for father to spend the night with patient
[2025-02-09] VITALS (7 sets, daily range): BP systolic 120–134; BP diastolic 64–76; PULSE 42–69; RESP 14–98; TEMP 36.6–37.1; O2SAT 97–100; BMI 18.5
[2025-02-09 06:31] LABS: Basophils % (Auto) 0 % (0-2.5); Eosinophils # (Auto) 0.1 Thou/mm3 (0.0-0.5); Eosinophils % (Auto) 1 % (0-10); Hemoglobin 16.2 g/dL (13.5-16.0); Immature Granulocytes % (Auto) 0 % (0-0); Immature Granulocytes Auto 0.01 Thou/mm3 (0.00-0.00); Lymphocytes # (Auto) 1.6 Thou/mm3 (1.0-4.8); Lymphocytes % (Auto) 23 % (10-50); Mean Corpuscular HGB Conc 35.2 g/dl (31.0-37.0); Mean Corpuscular Hemoglobin 29.5 pg (25.0-35.0); Mean Corpuscular Volume 84 fL (80-100); Monocytes # (Auto) 0.7 Thou/mm3 (0.0-0.8); Monocytes % (Auto) 10 % (0-12); Neutrophils # (Auto) 4.6 Thou/mm3 (1.8-7.7); Neutrophils % (Auto) 66 % (37-80); Nucleated Red Blood Cell % 0 /100 WBC (0); Platelet Count 178 Thou/mm3 (140-440)
[2025-02-09 06:55] LABS: Glucose Estimated Average 100 mg/dL (80-131); Hemoglobin A1C 5.1 % Hgb (4.8-6.0)
[2025-02-09 06:59] LABS: Alanine Aminotransferase 7 U/L (10-49); Albumin, Serum 4.5 gm/dL (3.5-5.0); Albumin/Globulin Ratio 2.1 (1.2-2.2); Alkaline Phosphatase 58 U/L (46-116); Anion Gap 11 (7-16); Aspartate Amino Transferase 19 U/L (0-34); BUN/Creatinine Ratio 10 Ratio (12-20); Blood Urea Nitrogen 10 mg/dL (9-23); Calcium 9.5 mg/dL (8.3-10.6); Calcium (Corrected) 9.5 mg/dL (8.5-10.1); Carbon Dioxide 27.6 mMol/L (20.0-31.0); Cardiac Risk Estimate 3.1 RATIO (4.0-6.7); Chloride 104 mMol/L (98-107); Cholesterol 162 mg/dL (132-200); Estimated Creatinine Clearance 106.2 mL/min (>60); Globulin 2.1 gm/dL (2.3-3.5); Glucose 89 mg/dL (74-106); HDL Cholesterol 52 mg/dL (40-60); LDL Cholesterol,Calculated 95 mg/dL (0-130); Osmolality,Calculated 282 (275-295); Potassium 4.2 mMol/L (3.4-5.1); Sodium 143 mMol/L (136-145); Thyroid Stimulating Hormone 1.05 uIU/mL (0.55-4.78); Total Protein 6.6 gm/dL (5.7-8.2); Triglycerides 76 mg/dL (30-150); eGFR > 60 See Note
[2025-02-09] MEDS: levETIRAcetam 250 MG TABLET 500 MG PO (08:02)
--- NOTE | 2025-02-09 10:06 | ESPR_ITS ---
<Statement entered by Luiz Bright MD - 02/14/25 12:35> I reviewed above note and agree with findings and plans. I have also personally examined the patient with medicine team and went over assessment and plan with medical team including biology intern and resident physician. Documentation for date of: 02/09/25 Subjective Subjective Interval history: No acute overnight events. Seen and examined at bedside and patient states that he has not had any episodes of palpitations, lightheadedness, chest discomfort, or shortness of breath. Check telemetry and heart rate drops into the 40s while sleeping but anticipated given patient's age and conditioning. EEG revealed multifocal spike and wave activity, consistent with seizure disorder and started on Keppra 500 mg twice daily. Touched base with cardiology today, and patient will need a referral to EP and if patient wishes can follow-up outpatient with Dr. Ambrose. Otherwise, can be discharged from cardiac standpoint after obtaining echo. Exam Vital Signs Temp Pulse Resp BP Pulse Ox O2 Del Method 98.8 F 62 18 134/64 H 98 Room Air 02/09/25 07:53 02/09/25 07:53 02/09/25 07:53 02/09/25 07:53 02/09/25 07:53 02/09/25 04:00 Narrative Exam General: AOx3, no acute distress, able to speak full sentences HEENT: NC/AT, mucous membranes moist, bilateral sclera anicteric Cardiovascular: regular rate and rhythm, S1/S2 present, no murmurs appreciated Pulmonary: clear to auscultation bilaterally, no rales/rhonchi/wheezes Abdominal: soft, non-tender, non-distended, no rebound/guarding, normal bowel sounds present Musculoskeletal: normal ROM, no peripheral edema Skin: warm and dry, intact, no rashes Neuro: CN II-XII intact, no focal deficits Objective Labs 02/09/25 05:42 02/09/25 05:42 Labs: Laboratory Results - last 24 hr 02/08/25 02/08/25 02/09/25 13:41 18:58 05:42 WBC 7.0 RBC 5.50 Hgb 16.2 H Hct 46.0 MCV 84 MCH 29.5 MCHC 35.2 RDW Std Deviation 41.0 Plt Count 178 Neut % (Auto) 66 Lymph % (Auto) 23 Ransom % (Auto) 10 Eos % (Auto) 1 Baso % (Auto) 0 Neut # (Auto) 4.6 Lymph # (Auto) 1.6 Ransom # (Auto) 0.7 Eos # (Auto) 0.1 Baso # (Auto) 0.0 Immature Gran # (Auto) 0.01 H Absolute Nucleated RBC 0.00 Immature Gran % 0 Nucleated RBC % 0 Sodium 143 Potassium 4.2 Chloride 104 Carbon Dioxide 27.6 Anion Gap 11 BUN 10 Creatinine 1.0 Estim Creat Clear Calc 106.2 eGFR > 60 BUN/Creatinine Ratio 10 L Glucose [address] Glu mg/dL 100 Hemoglobin A1c 5.1 Calculated Osmolality 282 Calcium 9.5 Corrected Calcium 9.5 Magnesium 2.0 Total Bilirubin 1.0 AST 19 ALT 7 L Alkaline Phosphatase 58 Troponin I < 0.020 < 0.020 Total Protein 6.6 Albumin 4.5 Globulin 2.1 L Albumin/Globulin Ratio 2.1 Triglycerides 76 Cholesterol 162 LDL Cholesterol, Calc 95 HDL Cholesterol 52 Cholesterol/HDL Ratio 3.1 L TSH 1.05 Quality Measures Quality Measures none Assessment & Plan Assessment Current Active Medications: Generic Name Dose Route Start Last Admin Trade Name Freq PRN Reason Stop Dose Admin Acetaminophen 650 mg 02/08/25 13:11 Acetaminophen 325 Mg Tablet PO 03/10/25 13:10 Q6H PRN pain and Fever >100.4 Protocol Hydrocodone Bitart/Acetaminophen 1 tab 02/08/25 13:11 Hydrocodone/Apap 5/325 Tablet PO 02/13/25 13:10 Q4HR PRN PAIN SCALE 4-10(Mod-Sev Levetiracetam 500 mg 02/08/25 21:00 02/09/25 08:02 Levetiracetam 250 Mg Tablet PO 03/10/25 20:59 500 mg BID SATHISH Administration Ondansetron HCl 4 mg 02/08/25 13:11 Ondansetron Inj 2 Mg/Ml Inj 2 Ml IVP 03/10/25 13:10 Q6H PRN NAUSEA OR VOMITING Protocol Plan Jamie Shi is a 24-year-old male with no past medical history who was admitted on 02/08/2025 for syncope. #Syncope secondary to seizures vs cardiac arrhythmia #New onset seizures Presents with syncopal episode in which he lost consciousness and found by his parents. This is his second episode within the last 2 months and mother at bedside states that patient appears to have bit his tongue or cheek and was confused afterwards. EEG revealed multifocal spike and wave activity, consistent with seizure disorder and started on Keppra [address] head and MRI brain were all negative for any pathology. A1c, lipid panel, and TSH all within normal limits. ? Neurology following, appreciate recommendations ? Keppra 500 mg p.o. twice daily ? Lorazepam 4 mg IV every 5 minutes as needed for breakthrough seizures ? Seizure precautions #Rrimg-Eqlvsttaw-Jbiof pattern versus syndrome Multiple EKGs show delta wave in leads II and V2 through V6 with shortened ND interval, suggestive of AVRT. Given syncopal events, although may be due to seizures, patient will require outpatient referral to EP and if patient wishes can follow-up with Dr. Ambrose outpatient. Troponins negative. Stable from cardiology perspective for discharge. ? Cardiology following, appreciate recommendations ? Follow-up echo ? Will need outpatient referral to EP Hospital management: Disposition: pending echo Fluids: not indicated Diet: regular Lines: PIV DVT prophylaxis: SCDs CODE STATUS: full code ----- Plan discussed with attending physician Dr. Kaila Oconnor MD PGY-1 Internal Medicine
--- NOTE | 2025-02-09 10:41 | PD.RESPRO ---
Documentation for date of: 02/09/25 Subjective Subjective Interval history: Tasneem is a 24 year old male with a limited past medical history who was admitted on 02/08/2025 for a syncopal event at approxmetly 8 AM on 02/08/2025. 02/09/2025: Patient deneid illicit drug use (patient's mother in the room) or alcohol use. No utox noted on file. Per patient history, two recent syncopal events, concern for seizures as patient experienced a post ictal event with increased confusion and increased work of breathing shorlty after. Per patient's father and mother, patient appeared tonic with increased rigidity following syncopal event. Family at bedside unsure if patient has tremors but noted to have a history of anxiety which leads patient to have upper extremity shaking. Exam Vital Signs Temp Pulse Resp BP Pulse Ox O2 Del Method 98.8 F 62 18 134/64 H 98 Room Air 02/09/25 07:53 02/09/25 07:53 02/09/25 07:53 02/09/25 07:53 02/09/25 07:53 02/09/25 04:00 Narrative Exam General Appearance: Alert & Oriented X3, well-nourished male who is lying in bed in no acute distress HEENT: Skull symmetrical and atraumatic. Conjunctivae pink and moist. Pupils equal, round, reactive to light and accommodation (PERRL). External ear without lesion or discharge. Straight, nares patient, mucosa pink, no discharge. No thyroid nodule appreciated. No cervical lymphadenopathy. Cardio: Normal Rate and Rhythm with S1 and S2 heart sounds. No murmurs or extra heart sounds auscultated. No bruits on carotid auscultation. No peripheral edema or cyanosis. Lungs: Symmetric with good expansion. Chest and back non-tender. Breath sounds vesicular without crackles, wheezing or rhonchi Abdomen: Non-tender, Non-distended, Normal Reactive Bowel Sounds Neuro: Alert, cooperative, oriented to person, place, and time. Speech clear. CN grossly intact. Upper motor strength 5/5 and Lower motor strength 5/5. Sensation intact. Objective Labs 02/09/25 05:42 02/09/25 05:42 Labs: Laboratory Results - last 24 hr 02/08/25 02/08/25 02/09/25 13:41 18:58 05:42 WBC 7.0 RBC 5.50 Hgb 16.2 H Hct 46.0 MCV 84 MCH 29.5 MCHC 35.2 RDW Std Deviation 41.0 Plt Count 178 Neut % (Auto) 66 Lymph % (Auto) 23 [place] % (Auto) 10 Eos % (Auto) 1 Baso % (Auto) 0 Neut # (Auto) 4.6 Lymph # (Auto) 1.6 [place] # (Auto) 0.7 Eos # (Auto) 0.1 Baso # (Auto) 0.0 Immature Gran # (Auto) 0.01 H Absolute Nucleated RBC 0.00 Immature Gran % 0 Nucleated RBC % 0 Sodium 143 Potassium 4.2 Chloride 104 Carbon Dioxide 27.6 Anion Gap 11 BUN 10 Creatinine 1.0 Estim Creat Clear Calc 106.2 eGFR > 60 BUN/Creatinine Ratio 10 L Glucose [address] Glu mg/dL 100 Hemoglobin A1c 5.1 Calculated Osmolality 282 Calcium 9.5 Corrected Calcium 9.5 Magnesium 2.0 Total Bilirubin 1.0 AST 19 ALT 7 L Alkaline Phosphatase 58 Troponin I < 0.020 < 0.020 Total Protein 6.6 Albumin 4.5 Globulin 2.1 L Albumin/Globulin Ratio 2.1 Triglycerides 76 Cholesterol 162 LDL Cholesterol, Calc 95 HDL Cholesterol 52 Cholesterol/HDL Ratio 3.1 L TSH 1.05 Quality Measures Quality Measures none Assessment & Plan Assessment Current Active Medications: Generic Name Dose Route Start Last Admin Trade Name Freq PRN Reason Stop Dose Admin Acetaminophen 650 mg 02/08/25 13:11 Acetaminophen 325 Mg Tablet PO 03/10/25 13:10 Q6H PRN pain and Fever >100.4 Protocol Hydrocodone Bitart/Acetaminophen 1 tab 02/08/25 13:11 Hydrocodone/Apap 5/325 Tablet PO 02/13/25 13:10 Q4HR PRN PAIN SCALE 4-10(Mod-Sev Levetiracetam 500 mg 02/08/25 21:00 02/09/25 08:02 Levetiracetam 250 Mg Tablet PO 03/10/25 20:59 500 mg BID SATHISH Administration Ondansetron HCl 4 mg 02/08/25 13:11 Ondansetron Inj 2 Mg/Ml Inj 2 Ml IVP 03/10/25 13:10 Q6H PRN NAUSEA OR VOMITING Protocol Plan #Syncope #Seizure Likely in the setting of seizure, as EEG noted to have multi-focal spike and wave activity. Family at beside noted two recent syncopal events with each event having post-ictal state. Noted to have increased confusion and increased work of breathing during two syncope events. Tonic rigidity. VS given past medical history of WPW first noted as outpatient, cardiac arrhythmia contributing to cause can not be ruled out. Plan -Follow outpatient with Neurology -Consider Prolactin and lactic level if re-admitted for similar events. 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 EKG noted for some delta wave and QRS >130. Less likely secondary to hypo/hyperthyroidism as TSH within normal limits. Echo (02/08/2025): EF 60-65%, thus less likely secondary to structural anatomy causes. Utox: not obtained. Plan -No acute intervention, stable vitals -K>4 and Mag >2 -Follow up with cardiology as outpatient via PCP referral Health Maintenance: Disp: Pt is currently admitted to floors for further management of Syncope likely secondary to seizure, cardiology signing off FEN: regular DVT: compression device Code: Full Code - The patient's plan was discussed with attending Dr. Arnol Gonzalez MD PGY1 Internal Medicine
--- NOTE | 2025-02-09 14:16 | ESDS_ITS ---
<Statement entered by Luiz Bright MD - 02/14/25 12:36> I reviewed above note and agree with findings and plans. I have also personally examined the patient with medicine team and went over assessment and plan with medical team including sales management intern and resident physician. Planned Discharge Date 02/09/25 DS: Providers Provider Date of admission: 02/08/25 13:31 Primary care physician: Jefe Lira MD Admitting Provider: Luiz Bright MD Attending Provider on Admission: Luiz Bright MD Consults: 02/08/25 13:15 Consult to Cardiology Routine Comment: Consulting Provider: Job Ambrose Consult to Neurology / Tele-Neurology Routine Comment: Consulting Provider: Nick Copeland 02/08/25 19:03 Consult to Neurology / Tele-Neurology Routine Comment: Consulting Provider: Nick Copeland Attending Provider on DC: Seamus Oconnor MD Discharging Provider: Seamus Oconnor MD DS: Diagnosis Problem List Completed Was Problem List Reviewed/Reconciled?: Yes Hospital Course Hospital Course Hospital course: Jamie Shi is a 24-year-old male with no significant past medical history who presented on 02/08 with syncopal episode. Patient was found unconscious by his parents and noted to have blood near his oral cavity and found to be confused afterwards. Of note, this is patient's second episode with similar symptoms. CT head and MRI brain were negative for acute pathologies, A1c, lipid panel, and TSH were all within normal limits. EEG revealed multifocal spike and wave activity, consistent with seizure disorder and patient was then started on Keppra 500 mg twice daily by neurology. Additionally, multiple EKGs show delta waves in leads leads to an V2 through V6 with shortened [place] intervals, suggestive of AVRT. Echo obtained and showed normal EF of 60 to 65% with no structural abnormality seen and patient heart rate remained within normal limits and in NSR. Per electrotyper helper, patient will require a referral to an implementation specialist payroll for further workup but stable for discharge from their perspective. Spoke to patient and mother regarding plans for referral to EP and to follow-up at the [facility] if they so choose for referral purpose. Additionally, ensured that they will need close follow-up with Dr. Copeland outpatient and will be discharged with Keppra 500 mg twice daily. Diagnoses during admission: #Syncope secondary to seizures vs cardiac arrhythmia #New onset seizures #Ozxxg-Eibjdvpab-Tujvo pattern versus syndrome Discharge instructions: ? You've been started on Keppra/levetiracetam 500 mg twice daily for your seizures ? Follow-up with Dr. Copeland outpatient within 1-2 weeks of discharge ? Follow-up with PCP within 1-2 weeks of discharge for electrophysiology referral (Dr. Medellin in [place]) ? If you do not have a PCP, you can follow-up at the [facility] (you can call [phone] to make an appointment) ? If you wish to follow-up with Dr. Oconnor, schedule appointment on Monday afternoons ? Return to ED if symptoms worsen or recur ----- Plan discussed with attending physician Dr. Kaila Oconnor MD PGY-1 Internal Medicine Time Spent with Patient Time attestation: Total time spent providing and/or coordinating discharge services: Time spent: Greater than 30 minutes Exam Vital Signs Temp Pulse Resp BP Pulse Ox O2 Del Method 98.5 F 61 16 120/69 99 Room Air 02/09/25 12:02/09/25 12:02/09/25 12:02/09/25 12:02/09/25 12:02/09/25 12:00 Narrative Exam General: AOx3, no acute distress, able to speak full sentences HEENT: NC/AT, mucous membranes moist, bilateral sclera anicteric Cardiovascular: regular rate and rhythm, S1/S2 present, no murmurs appreciated Pulmonary: clear to auscultation bilaterally, no rales/rhonchi/wheezes Abdominal: soft, non-tender, non-distended, no rebound/guarding, normal bowel sounds present Musculoskeletal: normal ROM, no peripheral edema Skin: warm and dry, intact, no rashes Neuro: CN II-XII intact, no focal deficits Discharge Plan Plan Patient Disposition: HOME (Self Care) Patient condition on transfer: Stable Care Plan Goals: ? You've been started on Keppra/levetiracetam 500 mg twice daily for your seizures ? Follow-up with Dr. Copeland outpatient within 1-2 weeks of discharge ? Follow-up with PCP within 1-2 weeks of discharge for electrophysiology referr al (Dr. Medellin in [place]) ? If you do not have a PCP, you can follow-up at the [facility] (you can call [phone] to make an appointment) ? If you wish to follow-up with Dr. Oconnor, schedule appointment on Monday afternoons ? Return to ED if symptoms worsen or recur Prescriptions/Referrals Prescriptions/Med Rec: New levetiracetam 500 mg tablet 500 mg PO BID 30 Days Qty: 60 0RF Continued ibuprofen 800 mg tablet 800 mg PO TID PRN (Reason: pain) Qty: 30 0RF Referrals: Jefe Lira MD [Primary Care Provider] - Patient/Caregiver Discharge Instructions Meds to Beds: No Discharge Activity: activity as tolerated Education Materials: Epilepsy How Seizures Affect Body, What Is Syncope?, Anatomy of the Brain Print Language: Lithuanian Stand Alone Forms: Lisandra Award Info., Patient Portal Info Letter, Work/Release Restrictions Discharge Order Discharge Orders: Discharge (Routine); Ordered 02/09/25 Ordered By: Seamus Oconnor Quality Discharge Quality Measures VTE prophylaxis
--- NOTE | 2025-02-09 23:52 | PD.VPROG1 ---
Telemedicine visit statement This visit was conducted with the use of interactive audio and video telecommunications system that permits real time communication between the patient and the provider. Patient's verbal consent for virtual visit was obtained on 02/09/25 at 2352. Documentation for date of: 02/09/25 Subjective Subjective Interval history: Patient is in telemetry. No new symptoms reported no breakthrough seizures after admission. No side effects on Keppra Virtual exam Vital Signs Temp Pulse Resp BP Pulse Ox O2 Del Method 98.3 F 66 16 125/76 100 Room Air 02/09/25 15:30 02/09/25 15:30 02/09/25 15:30 02/09/25 15:30 02/09/25 15:30 02/09/25 12:00 Objective Labs 02/09/25 05:42 02/09/25 05:42 Labs: Laboratory Results - last 24 hr 02/09/25 05:42 WBC 7.0 RBC 5.50 Hgb 16.2 H Hct 46.0 MCV 84 MCH 29.5 MCHC 35.2 RDW Std Deviation 41.0 Plt Count 178 Neut % (Auto) 66 Lymph % (Auto) 23 [place] % (Auto) 10 Eos % (Auto) 1 Baso % (Auto) 0 Neut # (Auto) 4.6 Lymph # (Auto) 1.6 [place] # (Auto) 0.7 Eos # (Auto) 0.1 Baso # (Auto) 0.0 Immature Gran # (Auto) 0.01 H Absolute Nucleated RBC 0.00 Immature Gran % 0 Nucleated RBC % 0 Sodium 143 Potassium 4.2 Chloride 104 Carbon Dioxide 27.6 Anion Gap 11 BUN 10 Creatinine 1.0 Estim Creat Clear Calc 106.2 eGFR > 60 BUN/Creatinine Ratio 10 L Glucose [address] Glu mg/dL 100 Hemoglobin A1c 5.1 Calculated Osmolality 282 Calcium 9.5 Corrected Calcium 9.5 Magnesium 2.0 Total Bilirubin 1.0 AST 19 ALT 7 L Alkaline Phosphatase 58 Total Protein 6.6 Albumin 4.5 Globulin 2.1 L Albumin/Globulin Ratio 2.1 Triglycerides 76 Cholesterol 162 LDL Cholesterol, Calc 95 HDL Cholesterol 52 Cholesterol/HDL Ratio 3.1 L TSH 1.05 Assessment & Plan Problem List (1) Seizure disorder: Status: Acute Assessment and plan: As the EEG shows abnormalities consistent with seizure disorder, we will keep him on Keppra 500 mg twice a day for now. Stable for discharge home. Reassurance given to the family that the MRI brain showed no intracranial will see him back in [facility] in 2 weeks (2) Syncope: Status: Chronic Assessment and plan: Follow-up with cardiology as an outpatient
== END 2025-02-09 15:30 | disposition home or self-care (01) ==
LOC: SERX 09:28 → SERHOLD 13:37 → S2NX 17:16
PROVIDERS: Admitting Provider Internal Medicine; Emergency Provider Emergency Medicine; PCP Obstetrics & Gynecology; Visit Provider Internal Medicine
DX: G40.909 Epilepsy, unspecified, not intractable, without status epilepticus (principal); F41.9 Anxiety disorder, unspecified; I10 Essential (primary) hypertension; S09.90XA Unspecified injury of head, initial encounter; Z01.810 Encounter for preprocedural cardiovascular examination
CPT/HCPCS: 36415; 70450; 70551; 71045; 80053; 80061; 80307; 83036; 83690; 83735; 83880; 84443; 84484; 85025; 85610; 85730; 93005; 93306; 95816; 99285; G0378; A9270

== ENCOUNTER 2025-03-05 07:04 | Emergency (ER) | payer MEDICAID, SELFPAY ==
[2025-03-05 07:20] VITALS: BP 132/71; PULSE 81; RESP 18; TEMP 37.1; O2SAT 97
[2025-03-05 07:32] VITALS: PULSE 102; O2SAT 97
--- NOTE | 2025-03-05 08:47 | EDNOTE_ITS ---
ED Seizures RME/HPI General Chief Complaint: Seizure Stated Complaint: SEIZURE Time Seen by Provider: 03/05/25 07:07 Arrival date/time: 03/05/25 07:04 Limitations: no limitations RME / HPI RME / HPI Narrative: DR. MARQUEZ MAIN ED EVALUATION: 24 year old male with past medical history significant for seizures takes 500 mg of Keppra presents to the Emergency Department [facility] with complaint of seizure prior to arrival. Seizure lasted 2 minutes, no prolonged postictal state, after 15 minutes he was back to normal. Patient gets a seizure every month since December 2024. No other symptom reported. Related Data Previous Rx's ?Medication ?Instructions ?Recorded ibuprofen 800 mg tablet 800 mg PO TID PRN pain #30 t abs 11/16/24 levetiracetam 500 mg tablet 500 mg PO BID 30 days #60 tabs 02/09/25 levetiracetam 500 mg tablet 1,000 mg (2 x 500 mg) PO B ID #[id number] 03/05/25 (Keppra) tabs Allergies Allergy/AdvReac Type Severity Reaction Status Date / Time No Known Allergies Allergy Verified 10/16/18 08:41 Review of Systems Review of Systems Systems Reviewed: All systems reviewed, normal except as documented Past Medical History Social History SMOKING STATUS: Never smoker SUBSTANCE USE: does not use ALCOHOL: Never ED Exam General Limitations: Present no limitations General appearance: Present alert and in no apparent distress Head Head exam: Present atraumatic, normocephalic and normal inspection Eye Eye exam: Present normal appearance, PERRL and EOMI ENT ENT exam: Present normal exam, normal oropharynx and mucous membranes moist Neck Neck exam: Present normal inspection, full ROM and trachea midline Chest Chest inspection: Present normal inspection and symmetric chest wall rise Respiratory Respiratory exam: Present normal lung sounds bilaterally Cardiovascular Cardiovascular exam: Present regular rate, normal rhythm and normal heart sounds Abdominal Exam Abdominal exam: Present soft and normal bowel sounds Extremities Exam Extremities exam: Present normal inspection and full ROM Back Exam Back exam: Present normal inspection and full ROM Neurological Exam Neurological exam: Present alert, oriented X3 and CN II-XII intact Psychiatric Psychiatric exam: Present normal affect and normal mood Skin Skin exam: Present warm, dry, intact and normal color Course Course Course Narrative: Patient has no event during his stay in the ER Patient was given a dose of Keppra 1000 mg p.o. The prescription was given to 4000 g twice a day He was advised to follow-up with his primary care physician and neurology Quality Measures none Orders Category Date Time Status CBC [CBC] Stat Lab 03/05/25 10:04 Completed CK [Creatine Kinase] Stat Lab 03/05/25 10:04 Completed CMP [Comprehensive Metabolic Panel] Stat Lab 03/05/25 10:04 Completed UA, C/S IF [Urinalysis, C/S if Indicated] Stat Lab 03/05/25 10:28 Completed levETIRAcetam [Keppra] Med 03/05/25 10:00 Discontinued 1,000 mg PO X1 ONE Vital Signs Vital signs: Vital Signs Temperature 98.8 F 03/05/25 07:20 Pulse Rate 81 03/05/25 07:20 Respiratory Rate 18 03/05/25 07:20 Blood Pressure 132/71 H 03/05/25 07:20 Pulse Oximetry (%) 97 03/05/25 07:20 Oxygen Delivery Method Room Air 03/05/25 07:20 Seizure MDM Narrative MDM Narrative:: ISmiley am scribing for and in the presence of Dr. Marquez. CC: seizure prior to arrival. Seizure lasted 2 minutes, no prolonged postictal state, after 15 minutes he was back to normal. Plan: Will give 1,000 mg bolus Keppra and discharge with prescription of 1,000 mg keppra. No need for CT. Patient discharged with seizure disorder and an epileptic seizure. Patient data External records reviewed:: [facility] previous records and EMS form Clinical information provided by:: patient, EMS and parent (mother) Social determinants that could affect healthcare access:: none Patient has the following chronic illnesses:: Seizures takes 500 mg of Keppra. How is presenting disease/condition affected by chronic disease/condition?: caused by Evaluation data The following diagnostics were reviewed and interpreted by me:: lab results Lab and/or radiology exams considered but not ordered:: No need for CT. Interpretation Summary: See narrative above. Medications / Prescriptions Medications or Prescriptions considered but not ordered:: none Medication administrations:: Medication Administration History Discontinued Medications Levetiracetam (Levetiracetam 250 Mg Tablet) 1,000 mg PO X1 ONE Stop: 03/05/25 10:01 Last Admin: 03/05/25 10:01 Dose: 1,000 mg Documented By: DB see above if any Consultations Consultation(s) initiated? (list below): No Diagnosis Seizure Differential Diagnosis: intractable seizure disorder, focal seizure and generalized seizure Most likely diagnosis given after review of the tests above:: Seizure disorder Epileptic seizure Admission Indicated Admission indicated?: not indicated Admission Request Was there a request for admission?: No Disposition Plan Disposition Plan: Discharge Discharge Attestation Discharge Attestation: The patient and all family members were given an opportunity to ask questions and understood the discharge instructions. Discharge instructions specifically effects, indications for sooner follow up or return to the emergency department, and the expected course of current diagnosis. Patient condition: Stable Discharge Plan Plan Patient Disposition: HOME (Self Care) Prescriptions/Referrals Prescriptions/Med Rec: New levetiracetam [Keppra] 500 mg tablet 1,000 mg PO BID Qty: 120 0RF No Action levetiracetam 500 mg tablet 500 mg PO BID 30 Days Qty: 60 0RF ibuprofen 800 mg tablet 800 mg PO TID PRN (Reason: pain) Qty: 30 0RF Referrals: Ryanne Copeland MD [Primary Care Provider] - In 1 week Problem List Clinical Impression: Seizure disorder, Epileptic seizure Patient/Caregiver Discharge Instructions Other Activity Instructions:: Follow-up with your doctor in 3 to 5 days Increase your Keppra to 1000 mg twice a day Make sure to see the neurologist to get EEG Education Materials: Epilepsy: Safety During a Seizure, ED Seizure, Recurrent (Adult) Print Language: Montenegrin Stand Alone Forms: Lisandra Award Info., Patient Portal Info Letter
[2025-03-05] MEDS: levETIRAcetam 250 MG TABLET 1000 MG PO (10:01)
[2025-03-05 10:02] VITALS: BP 126/72; PULSE 57; RESP 16; O2SAT 99
[2025-03-05 10:17] LABS: Basophils % (Auto) 0 % (0-2.5); Eosinophils % (Auto) 1 % (0-10); Hematocrit 43.4 % (41.0-53.0); Hemoglobin 15.3 g/dL (13.5-16.0); Immature Granulocytes % (Auto) 0 % (0-0); Immature Granulocytes Auto 0.01 Thou/mm3 (0.00-0.00); Lymphocytes # (Auto) 0.9 Thou/mm3 (1.0-4.8); Lymphocytes % (Auto) 12 % (10-50); Mean Corpuscular HGB Conc 35.3 g/dl (31.0-37.0); Mean Corpuscular Hemoglobin 29.4 pg (25.0-35.0); Mean Corpuscular Volume 83 fL (80-100); Monocytes # (Auto) 0.5 Thou/mm3 (0.0-0.8); Monocytes % (Auto) 6 % (0-12); Neutrophils # (Auto) 6.2 Thou/mm3 (1.8-7.7); Neutrophils % (Auto) 81 % (37-80); Nucleated Red Blood Cell % 0 /100 WBC (0); Platelet Count 175 Thou/mm3 (140-440); RDW Standard Deviation 39.8 fL (35.1-43.9); Red Blood Count 5.21 Miln/mm3 (4.50-5.90); White Blood Count 7.6 Thou/mm3 (3.8-10.6)
[2025-03-05 10:35] VITALS: BP 135/77; PULSE 68; RESP 18; TEMP 36.9; O2SAT 99
[2025-03-05 10:44] LABS: Collection Type, Urine Clean Catch
[2025-03-05 10:50] LABS: Alanine Aminotransferase 7 U/L (10-49); Albumin, Serum 4.6 gm/dL (3.5-5.0); Albumin/Globulin Ratio 2.4 (1.2-2.2); Alkaline Phosphatase 52 U/L (46-116); Anion Gap 8 (7-16); Aspartate Amino Transferase 19 U/L (0-34); BUN/Creatinine Ratio 9 Ratio (12-20); Bilirubin,Total 0.6 mg/dL (0.3-1.2); Blood Urea Nitrogen 9 mg/dL (9-23); Calcium 9.6 mg/dL (8.3-10.6); Calcium (Corrected) 9.6 mg/dL (8.5-10.1); Carbon Dioxide 31.2 mMol/L (20.0-31.0); Chloride 102 mMol/L (98-107); Creatine Kinase 197 U/L (34-171); Globulin 1.9 gm/dL (2.3-3.5); Glucose 91 mg/dL (74-106); Osmolality,Calculated 279 (275-295); Potassium 4.2 mMol/L (3.4-5.1); Sodium 141 mMol/L (136-145); Total Protein 6.5 gm/dL (5.7-8.2); eGFR > 60 See Note
[2025-03-05 10:54] LABS: Bilirubin,Urine Negative (Negative); Blood,Urine Negative (Negative); Clarity,Urine Clear (Clear/Hazy); Color,Urine Lt-Yellow (Lt Yel-Yel); Culture Indicated,Urine Not Indicated; Glucose, Urine Negative (Negative); Ketones,Urine Trace (Negative); Leukocyte Esterase,Urine Negative (Negative); Nitrite,Urine Negative (Negative); Protein,Urine Negative (Neg - Trace); RBC,Urine 2 /hpf (0-3); Specific Gravity,Urine 1.019 (1.001-1.035); Squamous Epithelial Cell,Urine < 1 /hpf (0-5); Urobilinogen,Urine Negative mg/dL (0.0-1.0); WBC,Urine 2 /hpf (0-5)
[2025-03-05 11:41] VITALS: BP 135/77; PULSE 60; RESP 16; TEMP 36.7; O2SAT 99
== END 2025-03-05 11:42 | disposition home or self-care (01) ==
PROVIDERS: Emergency Provider Emergency Medicine; PCP Family Medicine
DX: G40.909 Epilepsy, unspecified, not intractable, without status epilepticus (principal)
CPT/HCPCS: 36415; 80053; 81001; 82550; 85025; 99283; A9270

== ENCOUNTER 2025-05-17 06:48 | Emergency (ER) | payer MEDICAID, SELFPAY ==
--- NOTE | 2025-05-17 06:51 | EDNOTE_ITS ---
ED Seizures RME/HPI General Chief Complaint: Seizure Stated Complaint: SEIZURE Time Seen by Provider: 05/17/25 06:51 Arrival date/time: 05/17/25 06:48 RME / HPI RME / HPI Narrative: DR. 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 Patient is currently on Keppra and medication for acid reflux. Denies any abdominal pain, diarrhea, dysuria, or allergies to medications. Related Data Previous Rx's ?Medication ?Instructions ?Recorded ibuprofen 800 mg tablet 800 mg PO TID PRN pain #30 t abs 11/16/24 levetiracetam 500 mg tablet 1,000 mg (2 x 500 mg) PO B ID #[id number] 03/05/25 (Keppra) tabs Allergies Allergy/AdvReac Type Severity Reaction Status Date / Time No Known Allergies Allergy Verified 10/16/18 08:41 Review of Systems Review of Systems Systems Reviewed: All systems reviewed, normal except as documented Past Medical History Past Medical History NEUROLOGIC: Positive Neurological Disorders and Seizures ED Exam Narrative Physical exam: GEN. APPEARANCE: The patient is alert awake oriented X-3 in no distress, lying down comfortably, does not look ill/toxic. Patient has good eye contact. Patient is cooperative, but solow to respond. VITALS: All vitals were reviewed and the pulse ox is 99% on room air which is normal according to my interpretation. HEENT: Normocephalic, atraumatic. Pupils are equal and reactive. Oral mucosa is moist. Patent Nares NECK: Supple, nontender, no thyromegaly, no meningismus, no JVD CHEST: Symmetrical, atraumatic, and with equal expansion , Nontender on palpation no deformity and no crepitus. CARDIOVASCULAR: Heart regular rhythm no murmur or gallop rub or extra beats. LUNGS: Clear to auscultation bilaterally with symmetrical chest rise. No laboring tachypnea or wheezing. No intercostal subcostal retraction. No rales and no rhonchi. ABDOMEN: Soft, flat, nontender to palpation, no guarding or rebound tenderness. There are no abnormal masses palpated. Active and normal bowel sounds. EXTREMITIES: Nontender. No edema. No cyanosis. Patient is able to move all 4 extremities well, with full ROM and good CSM. SKIN: Warm and dry, no jaundice or rashes noted. MUSCULOSKELETAL: No lumbar or midline bony tenderness. There is no CVA tenderness. No paraspinal muscle spasm or tenderness. NEURO: Patient is MINER x 4, Cranial nerves II through XII grossly intact. There is no focal neurologic deficits noted. GCS is 15, PNS and PUBLIC SERVICES ASSISTANT appear grossly intact. Slow to respond. PSYCHIATRIC: Patient is in normal mood and affect. Course Quality Measures none Orders Category Date Time Status Bedside COVID-19 Antigen Test NOW Care 05/17/25 06:52 Active Bedside Influenza A&B Antigen Test NOW Care 05/17/25 06:53 Completed EKG (ED ONLY) *Do not use* NOW Care 05/17/25 06:53 Completed Insert IV NOW Care 05/17/25 07:04 Active Seizure precautions NOW Care 05/17/25 06:52 Active Seizure precautions NOW Care 05/17/25 06:[address] head/brain wo con Stat Exams 05/17/25 06:52 Completed EKG (ED Only) Stat Exams 05/17/25 06:53 Draft CBC Stat Lab 05/17/25 07:04 Completed CMP [Comprehensive Metabolic Panel] Stat Lab 05/17/25 07:04 Completed Troponin I Stat Lab 05/17/25 07:04 Completed levETIRAcetam INJ [Keppra Inj] Med 05/17/25 06:52 Discontinued 1,000 mg IVP X1 ONE Reevaluation(s) Reevaluation #1: Patient feels fine. Denies any urinary symptoms. Mother states that sometimes patient forgets to take his Keppra. Time: 10:22 Vital Signs Vital signs: Vital Signs Temperature 98.3 F 05/17/25 06:58 Pulse Rate 88 05/17/25 06:58 Respiratory Rate 19 05/17/25 06:58 Blood Pressure 147/75 H 05/17/25 06:58 Pulse Oximetry (%) 99 05/17/25 06:58 Oxygen Delivery Method Room Air 05/17/25 06:58 Seizure MDM Narrative MDM Narrative:: Scribe Attestation: IKaren, am scribing for and in the presence of Dr. Zuniga. Provider Notation: Although this document has been carefully reviewed, there may still be some phonetic and other typographical errors. These errors are purely grammatical due to imperfections in the software program and should not be construed in any way to compromise the substance of the patient's medical care during this visit. Patient is a 24yo male that is in the ED with concerns with breakthrough seizure. Patient has a history of epilepsy. Also concern for possible fall unclear if it is head. Concern for metabolic disturbance, breakthrough seizure, acute intracranial abnormality. Ordered labs, CT brain, EKG. Also ordered Keppra and seizure precautions. Labs without leukocytosis, patient hemoglobin is 16.5, no left shift. No significant metabolic derangements. Head CT unremarkable, EKG without evidence of ischemia and arrhythmia. Troponin not elevated. After period of observation in the emergency department, patient remained hemodynamically stable, not in distress, back at his neurologic baseline. Will discharge home with close return precautions and follow-up with his primary care doctor. Patient's mom is at bedside, states that sometimes he forgets to take his dose of Keppra at home and it may be the cause of his breakthrough seizure. Patient without any urinary symptoms no dysuria no hematuria. Patient data External records reviewed:: [facility] previous records (Reviewed prior ED records from 03/05/25. Patient was seen for Epileptic seizure.) and EMS form Clinical information provided by:: patient and EMS Social determinants that could affect healthcare access:: none Patient has the following chronic illnesses:: Seizures How is presenting disease/condition affected by chronic disease/condition?: exacerbated by Evaluation data The following diagnostics were reviewed and interpreted by me:: lab results, radiology exam(s) and EKG tracing(s) (EKG done at 0711, 74 bpm, normal intervals, non-specific T-wave changes, not a cardiac alert. - Interpreted by Dr. Carina Zuniga.) Lab and/or radiology exams considered but not ordered:: None Interpretation Summary: RADIOLOGY Head/Brain CT: Findings: No significant ventricular enlargement. Intra-axial or extra-axial hemorrhage density is not seen. No mass effect or midline shift Basal cisterns are not remarkable. Fourth ventricle is midline. Cranial vault intact. Impression: Negative for acute hemorrhage, mass effect or midline shift Consider repeat elective brain MRI follow-up, pre and postcontrast, seizure protocol Medications / Prescriptions Medications or Prescriptions considered but not ordered:: None Medication administrations:: Medication Administration History Discontinued Medications Levetiracetam (Levetiracetam Inj 100 Mg/Ml Vial 5ml) 1,000 mg IVP X1 ONE Stop: 05/17/25 06:53 Last Admin: 05/17/25 07:25 Dose: 1,000 mg Documented By: LEO See above if any. Consultations Consultation(s) initiated? (list below): No Diagnosis Seizure Differential Diagnosis: intractable seizure disorder, focal seizure, generalized seizure, epileptic seizure and status epilepticus Most likely diagnosis given after review of the tests above:: Breakthrough seizure Admission Indicated Admission indicated?: not indicated Explain why admission is indicated or not indicated:: Patient does not meet admission criteria. Admission Request Was there a request for admission?: No Disposition Plan Disposition Plan: Discharge Discharge Attestation Discharge Attestation: The patient and all family members were given an opportunity to ask questions and understood the discharge instructions. Discharge instructions specifically effects, indications for sooner follow up or return to the emergency department, and the expected course of current diagnosis. Patient condition: Stable Critical Care Time Critical Care Time Critical Care Time: Yes Total Critical Care Time (min.): 45 Attestation: ?I spent 45minutes of critical care time with this patient not including reportable procedures. There was an acute impairment of an organ system with a high probability of imminent or life threatening deterioration in the patient's condition. Interventions and changes required in the course of therapy are located in the chart. Time involved was spent in direct patient care, reviewing ancillary data, old records, consulting with decision makers, EMS, other doctors, giving orders and documenting. Discharge Plan Plan Patient Disposition: HOME (Self Care) Prescriptions/Referrals Prescriptions/Med Rec: No Action levetiracetam [Keppra] 500 mg tablet 1,000 mg PO BID Qty: 120 0RF ibuprofen 800 mg tablet 800 mg PO TID PRN (Reason: pain) Qty: 30 0RF Referrals: Rhea Altman POTATO GRADER [Primary Care Provider] - In 1 week Problem List Clinical Impression: Breakthrough seizure Patient/Caregiver Discharge Instructions Education Materials: Self-Care for Epilepsy, Discharge Instructions for Epilepsy Additional Instructions: Follow-up with your primary care provider in 1-2 days. Return immediately if symptoms worsen or persist. Print Language: Citizen [place] Stand Alone Forms: Lisandra Award Info., Patient Portal Info Letter
[2025-05-17 06:52] VITALS: PULSE 110; RESP 19; O2SAT 98
--- NOTE | 2025-05-17 06:52 | XR_ITS ---
Examination: CT brain head without contrast. 2-D sagittal coronal reconstructions Date and time of exam:May 17 thousand 25, 1745 hrs. Indications: Seizure this morning Comparison: February 08, 2025 CTDI: vol (mGy):51.1 DLP: (mGycm):1025 Technique: Multiple CT axial sections of the brain have been obtained, 5 mm slice thickness. Contrast has not been administered. 2-D sagittal, coronal reconstructions have been obtained Low dose protocols were performed. One or more of the following dose reduction techniques were used; automated exposure control, adjustment of the mA and/or KV according to patient size, use of iterative reconstruction technique. Findings: No significant ventricular enlargement. Intra-axial or extra-axial hemorrhage density is not seen. No mass effect or midline shift Basal cisterns are not remarkable. Fourth ventricle is midline. Cranial vault intact. Impression: Negative for acute hemorrhage, mass effect or midline shift Consider repeat elective brain MRI follow-up, pre and postcontrast, seizure protocol
--- NOTE | 2025-05-17 06:53 | EKG_ITS ---
[facility] Test Date: 2025-05-17 Pat Name: DEXTER BHATIA Department: Room: - Gender: Male Vaccine Manager: : 2000 Requested By: Carina Mendoza Order Number: [id number] Reading MD: Carina Mendoza Measurements Intervals [place] Rate: 74 P: 71 NE: 118 QRS: 72 QRSD: 134 T: 77 QT: 385 QTc: 428 Interpretive Statements SINUS RHYTHM WITH SHORT NE INTERVAL VENTRICULAR PREEXCITATION / WPW CRITICAL TEST RESULT Compared to ECG 02/08/2025 14:43:44 Sinus bradycardia no longer present /store/S0/[id number]/ecg/[id number].pdf
[2025-05-17 06:58] VITALS: BP 147/75; PULSE 88; RESP 19; TEMP 36.8; O2SAT 99
[2025-05-17 07:16] LABS: Basophils # (Auto) 0.0 Thou/mm3 (0.0-0.2); Basophils % (Auto) 1 % (0-2.5); Eosinophils # (Auto) 0.1 Thou/mm3 (0.0-0.5); Eosinophils % (Auto) 3 % (0-10); Hematocrit 47.6 % (41.0-53.0); Hemoglobin 16.5 g/dL (13.5-16.0); Immature Granulocytes Auto 0.01 Thou/mm3 (0.00-0.00); Lymphocytes # (Auto) 1.8 Thou/mm3 (1.0-4.8); Lymphocytes % (Auto) 35 % (10-50); Mean Corpuscular HGB Conc 34.7 g/dl (31.0-37.0); Mean Corpuscular Hemoglobin 29.7 pg (25.0-35.0); Mean Corpuscular Volume 86 fL (80-100); Monocytes # (Auto) 0.4 Thou/mm3 (0.0-0.8); Monocytes % (Auto) 7 % (0-12); Neutrophils # (Auto) 2.8 Thou/mm3 (1.8-7.7); Neutrophils % (Auto) 54 % (37-80); Nucleated Red Blood Cell # 0.00 Thou/mm3 (0.00-0.00); Nucleated Red Blood Cell % 0 /100 WBC (0); Platelet Count 186 Thou/mm3 (140-440); RDW Standard Deviation 39.4 fL (35.1-43.9); Red Blood Count 5.56 Miln/mm3 (4.50-5.90); White Blood Count 5.1 Thou/mm3 (3.8-10.6)
[2025-05-17] MEDS: levETIRAcetam INJ 100 MG/ML VIAL 5ML 1000 MG IVP (07:25)
[2025-05-17 08:07] VITALS: BP 117/83; PULSE 73; RESP 19; TEMP 36.9; O2SAT 98
[2025-05-17 08:16] LABS: Albumin, Serum 4.8 gm/dL (3.5-5.0); Albumin/Globulin Ratio 2.3 (1.2-2.2); Alkaline Phosphatase 54 U/L (46-116); Anion Gap 15 (7-16); Aspartate Amino Transferase 18 U/L (0-34); BUN/Creatinine Ratio 8 Ratio (12-20); Bilirubin,Total 0.9 mg/dL (0.3-1.2); Blood Urea Nitrogen 9 mg/dL (9-23); Calcium 10.6 mg/dL (8.3-10.6); Calcium (Corrected) 10.6 mg/dL (8.5-10.1); Carbon Dioxide 25.6 mMol/L (20.0-31.0); Chloride 100 mMol/L (98-107); Creatinine (Component) 1.1 mg/dL (0.6-1.3); Globulin 2.1 gm/dL (2.3-3.5); Glucose 108 mg/dL (74-106); Osmolality,Calculated 280 (275-295); Potassium 4.5 mMol/L (3.4-5.1); Sodium 141 mMol/L (136-145); Total Protein 6.9 gm/dL (5.7-8.2); Troponin I < 0.002 ng/mL (0.0-0.045); eGFR > 60 See Note
[2025-05-17 08:27] LABS: Alanine Aminotransferase < 7 U/L (10-49)
[2025-05-17 10:04] VITALS: BP 128/76; PULSE 60; RESP 18; TEMP 37.1; O2SAT 98
== END 2025-05-17 10:50 | disposition home or self-care (01) ==
PROVIDERS: Emergency Provider Emergency Medicine; PCP Nurse Practitioner Family
DX: R56.9 Unspecified convulsions (principal)
CPT/HCPCS: 36415; 70450; 80053; 81001; 84484; 85025; 87400; 87811; 93005; 96374; 99284; J1953

== ENCOUNTER 2025-08-11 10:21 | Emergency (ER) | payer MEDICAID, SELFPAY ==
[2025-08-11 10:26] VITALS: PULSE 106; RESP 20; O2SAT 96; BMI 18.2
[2025-08-11 10:28] VITALS: BP 135/79; PULSE 102; RESP 17; TEMP 36.6; O2SAT 99; BMI 18.7
[2025-08-11 10:49] LABS: Collection Type, Urine Clean Catch
--- NOTE | 2025-08-11 10:59 | EDNOTE_ITS ---
ED Seizures RME/HPI General Chief Complaint: Seizure Stated Complaint: SEIZURE Time Seen by Provider: 08/11/25 10:22 Arrival date/time: 08/11/25 10:21 RME / HPI RME / HPI Narrative: 24 year old male with history of seizures on Keppra (1,000mg BID) presents to the ED BIBA for evaluation following a seizure today. Per medics report, family witnessed the seizure that was described as full body shaking, lasting ~ 1 minute. Per medics, on scene the patient was awake and answering questions, no prolonged postictal phase. In the ED, patient stated he had a headache however states it has since resolved. No other associated symptoms reported. Patient states he is compliant with his Keppra. Related Data Previous Rx's ?Medication ?Instructions ?Recorded ibuprofen 800 mg tablet 800 mg PO TID PRN pain #30 t abs 11/16/24 levetiracetam 500 mg tablet 1,000 mg (2 x 500 mg) PO B ID #120 03/05/25 (Keppra) tabs levetiracetam 500 mg tablet 1,250 mg (2.5 x 500 mg) PO BID #90 08/11/25 (Keppra) tabs Allergies Allergy/AdvReac Type Severity Reaction Status Date / Time No Known Allergies Allergy Verified 10/16/18 08:41 Review of Systems Review of Systems Systems Reviewed: All systems reviewed, normal except as documented Past Medical History Past Medical History NEUROLOGIC: Positive Neurological Disorders and Seizures Social History SMOKING STATUS: Never smoker SUBSTANCE USE: does not use ED Exam Narrative Physical exam: GENERAL APPEARANCE: alert and oriented x 4, well-developed, well-nourished, no acute distress HEENT: Normocephalic, atraumatic; pupils equal, round, reactive to light; EOMI; mucous membranes pink, moist; oropharynx clear NECK: Supple LUNGS: CTABL; no wheezes, no rales, no rhonchi HEART: Regular rate, regular rhythm; normal S1, S2; no murmurs ABDOMEN: non distended; normal BS; soft, no tenderness, no guarding, no rebound; no masses, no organomegaly, no hernia BACK: no CVA tenderness EXTREMITIES: atraumatic; no edema NEUROLOGIC: awake; alert and oriented x4; cranial nerves II-XII grossly intact; no focal sensory or motor deficits PSYCHIATRIC: appropriate mood and affect SKIN: warm, dry, normal color; no rashes Course Quality Measures none Orders Category Date Time Status CBC Stat Lab 08/11/25 10:49 Completed CMP [Comprehensive Metabolic Panel] Stat Lab 08/11/25 10:49 Completed Drug Screen,Urine Stat Lab 08/11/25 10:42 Completed Levetiracetam (Keppra)* Stat Lab 08/11/25 12:01 Received UA, C/S IF [Urinalysis, C/S if Indicated] Stat Lab 08/11/25 10:42 Completed levETIRAcetam INJ [Keppra Inj] Med 08/11/25 11:26 Discontinued 1,000 mg IVP X1 ONE Vital Signs Vital signs: Vital Signs Temperature 97.9 F 08/11/25 10:28 Pulse Rate 102 H 08/11/25 10:28 Respiratory Rate 17 08/11/25 10:28 Blood Pressure 135/79 H 08/11/25 10:28 Pulse Oximetry (%) 99 08/11/25 10:28 Oxygen Delivery Method Room Air 08/11/25 10:28 Pulse ox is 99% on room air which is adequate. Seizure MDM Narrative MDM Narrative:: IAsya am scribing for and in the presence of Dr. Jewell. 1126a: I spoke with neurologist Dr. Copeland. Discussed patients PMHx, HPI, ED course, exam findings, labs results. She recommends increased patients Keppra to 1,250mg BID. 1300p: Patient has remained stable through ED course and without incident. We reviewed all the results, analysis, and treatment plans. Patient is amenable to discharge. Strict return precautions were outlined. Patient data External records reviewed:: [facility] previous records and EMS form Clinical information provided by:: patient and EMS Social determinants that could affect healthcare access:: none Patient has the following chronic illnesses:: Seizures How is presenting disease/condition affected by chronic disease/condition?: exacerbated by Evaluation data The following diagnostics were reviewed and interpreted by me:: lab results Lab and/or radiology exams considered but not ordered:: None Interpretation Summary: CBC and CMP are unremarkable UA negative for infection Medications / Prescriptions Medications or Prescriptions considered but not ordered:: None Medication administrations:: Medication Administration History Discontinued Medications Levetiracetam (Levetiracetam Inj 100 Mg/Ml Vial 5ml) 1,000 mg IVP X1 ONE Stop: 08/11/25 11:27 Last Admin: 08/11/25 11:47 Dose: 1,000 mg Documented By: ER See above Consultations Consultation(s) initiated? (list below): Yes Consultation #1 (Physician, Specialty, Details): See MDM Diagnosis Seizure Differential Diagnosis: intractable seizure disorder, focal seizure, generalized seizure and epileptic seizure Most likely diagnosis given after review of the tests above:: Recurrent seizure Admission Indicated Admission indicated?: not indicated Admission Request Was there a request for admission?: No Disposition Plan Disposition Plan: Discharge Discharge Attestation Discharge Attestation: The patient and all family members were given an opportunity to ask questions and understood the discharge instructions. Discharge instructions specifically effects, indications for sooner follow up or return to the emergency department, and the expected course of current diagnosis. Patient condition: Stable Discharge Plan Plan Patient Disposition: HOME (Self Care) Prescriptions/Referrals Prescriptions/Med Rec: New levetiracetam [Keppra] 500 mg tablet 1,250 mg PO BID Qty: 90 0RF No Action levetiracetam [Keppra] 500 mg tablet 1,000 mg PO BID Qty: 120 0RF ibuprofen 800 mg tablet 800 mg PO TID PRN (Reason: pain) Qty: 30 0RF Referrals: Christie Salazar FNP [Primary Care Provider] - In 1 week Nick Copeland MD [Physician, Neurology] Problem List Clinical Impression: Recurrent seizures Patient/Caregiver Discharge Instructions Education Materials: ED Seizure, Recurrent (Adult) Additional Instructions: Increase Keppra dose to 1250mg twice daily. Follow up with Dr. Ga. Call office for follow up appointment. Print Language: [place] Stand Alone Forms: Lisandra Award Info., Patient Portal Info Letter
[2025-08-11 11:01] LABS: Basophils # (Auto) 0.0 Thou/mm3 (0.0-0.2); Basophils % (Auto) 0 % (0-2.5); Eosinophils # (Auto) 0.0 Thou/mm3 (0.0-0.5); Eosinophils % (Auto) 1 % (0-10); Hematocrit 49.8 % (41.0-53.0); Hemoglobin 17.1 g/dL (13.5-16.0); Immature Granulocytes Auto 0.04 Thou/mm3 (0.00-0.00); Lymphocytes # (Auto) 0.9 Thou/mm3 (1.0-4.8); Lymphocytes % (Auto) 13 % (10-50); Mean Corpuscular HGB Conc 34.3 g/dl (31.0-37.0); Mean Corpuscular Hemoglobin 29.3 pg (25.0-35.0); Mean Corpuscular Volume 85 fL (80-100); Monocytes # (Auto) 0.6 Thou/mm3 (0.0-0.8); Monocytes % (Auto) 9 % (0-12); Neutrophils # (Auto) 5.4 Thou/mm3 (1.8-7.7); Neutrophils % (Auto) 76 % (37-80); Nucleated Red Blood Cell # 0.00 Thou/mm3 (0.00-0.00); Nucleated Red Blood Cell % 0 /100 WBC (0); Platelet Count 193 Thou/mm3 (140-440); RDW Standard Deviation 39.2 fL (35.1-43.9); Red Blood Count 5.83 Miln/mm3 (4.50-5.90); White Blood Count 7.1 Thou/mm3 (3.8-10.6)
[2025-08-11 11:09] LABS: Bilirubin,Urine Negative (Negative); Blood,Urine 1+ (Negative); Clarity,Urine Clear (Clear/Hazy); Color,Urine Yellow (Lt Yel-Yel); Culture Indicated,Urine Not Indicated; Glucose, Urine Negative (Negative); Ketones,Urine 1+ (Negative); Leukocyte Esterase,Urine Negative (Negative); Nitrite,Urine Negative (Negative); PH,Urine 6.0 (5.0-7.0); Protein,Urine 1+ (Neg - Trace); RBC,Urine 5 /hpf (0-3); Specific Gravity,Urine 1.023 (1.001-1.035); Squamous Epithelial Cell,Urine < 1 /hpf (0-5); Urobilinogen,Urine Negative mg/dL (0.0-1.0); WBC,Urine 2 /hpf (0-5)
[2025-08-11 11:19] LABS: Amphetamine/Methamp Scrn,U Negative (Negative); Barbiturate Screen,Urine Negative (Negative); Benzodiazepines Screen,Urine Negative (Negative); Benzoylecgonine Screen, Ur Negative (Negative); Fentanyl Screen,Urine Negative (Negative); Opiate Screen,Urine Negative (Negative); THC Screen,Urine Negative (Negative)
[2025-08-11 11:19] LABS: Alanine Aminotransferase 11 U/L (10-49); Albumin, Serum 5.1 gm/dL (3.5-5.0); Albumin/Globulin Ratio 2.0 (1.2-2.2); Alkaline Phosphatase 66 U/L (46-116); Anion Gap 13 (7-16); Aspartate Amino Transferase 27 U/L (0-34); BUN/Creatinine Ratio 8 Ratio (12-20); Bilirubin,Total 0.6 mg/dL (0.3-1.2); Blood Urea Nitrogen 9 mg/dL (9-23); Calcium 10.3 mg/dL (8.3-10.6); Calcium (Corrected) 10.3 mg/dL (8.5-10.1); Carbon Dioxide 24.1 mMol/L (20.0-31.0); Chloride 101 mMol/L (98-107); Creatinine (Component) 1.2 mg/dL (0.6-1.3); Estimated Creatinine Clearance 87.2 mL/min (>60); Globulin 2.5 gm/dL (2.3-3.5); Glucose 153 mg/dL (74-106); Osmolality,Calculated 277 (275-295); Potassium 5.0 mMol/L (3.4-5.1); Sodium 138 mMol/L (136-145); Total Protein 7.6 gm/dL (5.7-8.2); eGFR > 60 See Note
[2025-08-11] MEDS: levETIRAcetam INJ 100 MG/ML VIAL 5ML 1000 MG IVP (11:47)
[2025-08-11 13:19] VITALS: BP 121/76; PULSE 78; RESP 16; TEMP 36.7; O2SAT 98
[2025-08-14 07:04] LABS: Levetiracetam (Keppra)* 49.8 mcg/mL (10.0-40.0)
== END 2025-08-11 13:24 | disposition home or self-care (01) ==
PROVIDERS: Emergency Provider Emergency Medicine; PCP Student in an Organized Health Care Education/Training Program
DX: R56.9 Unspecified convulsions (principal)
CPT/HCPCS: 36415; 80053; 80177; 80307; 81001; 85025; 96374; 99283; J1953